=== PATIENT | male | born 1945 | race Caucasian/White ===

== ENCOUNTER 2017-05-28 19:30 | Observation (INO) ==
--- NOTE | 2017-05-28 19:34 | Emergency Department Note ---
Disposition Clinical Impression: Chest pain Qualifiers: Chest pain type: unspecified Qualified Code(s): R07.9 - Chest pain, unspecified Dyspnea Qualifiers: Dyspnea type: unspecified Qualified Code(s): R06.00 - Dyspnea, unspecified Disposition: Admitted As Inpatient Condition: Good [facility]Primary Care Provider[facility] - Forms: ED Satisfaction Letter Time of Disposition: 21:47 SOB HPI - General Chief Complaint: ED Shortness of Breath/Dyspnea Stated Complaint: SHERRY Time Seen by Provider: 05/28/17 19:33 Source: patient Mode of arrival: ambulatory Limitations: no limitations Nursing Notes Reviewed: Yes Vital Signs Reviewed: Yes - History of Present Illness Patient is a 71-year-old male with past medical history COPD, CHF, hypertension , high cholesterol, A. fib, diabetes. He presents today due to shortness of breath and chest pain. He states that he woke up this morning around 3 AM with chest pain that woke him up out of sleep. Chest pain is left-sided, described as a dull ache, no radiation anywhere else, worse with exertion, associated with shortness of breath that is also worsened with exertion. Denies any other nausea, vomiting, sweating, fevers, diarrhea, abdominal pain. Denies any history of MA, any history of cardiac stents. He was seen this morning by previous physician and they wanted to admit the patient for chest pain rule out. However, the patient left against recommendation because he had animals that he needed to feed a home. He returns to the ER today with continued symptoms. He states that his chest pain never went away, his shortness of breath is worsening. - Related Data Home Medications Medication Instructions Recorded Confirmed Amiodarone [Cordarone] 100 mg PO DAILY 10/04/14 05/28/17 Aspirin Enteric Coated [Aspirin EC] 81 mg PO DAILY 10/04/14 05/28/17 Diltiazem CD (24hr) [Cardizem CD] 180 mg PO DAILY 10/04/14 05/28/17 Omeprazole [PriLOSEC] 20 mg PO DAILY 10/04/14 05/28/17 Atorvastatin [Lipitor] 40 mg PO HS 01/09/16 05/28/17 Cholecalciferol (D-3) [Vitamin D] 1,000 unit PO DAILY 10/27/16 05/28/17 Levothyroxine [Synthroid] 150 mcg PO DAILY 10/27/16 05/28/17 Lisinopril [Zestril] 5 mg PO DAILY 10/27/16 05/28/17 Naproxen [Naprosyn] 250 mg PO TID 10/27/16 05/28/17 Tamsulosin [Flomax] 0.4 mg PO HS 10/27/16 05/28/17 metFORMIN [Glucophage] 500 mg PO 0800 10/27/16 05/28/17 Previous Rx's Medication Instructions Recorded HYDROcodone/Acet 5/325 mg [[place] 1 tab PO Q4H PRN #15 tab 10/27/16 5-325 mg] Furosemide [Lasix] 20 mg PO DAILY #14 tablet 01/14/17 Allergies Allergy/AdvReac Type Severity Reaction Status Date / Time duloxetine AdvReac Unknown DIFFICULTY Verified 05/28/17 20:11 SPEAKING gabapentin AdvReac Unknown TREMORS Verified 05/28/17 20:11 Oxycodone AdvReac Unknown Hypotension Verified 05/28/17 20:11 pregabalin AdvReac Unknown TREMORS Verified 05/28/17 20:11 venlafaxine AdvReac Unknown Rash Verified 05/28/17 20:11 All systems ED: reviewed and negative except as stated. Constitutional: Denies: fever Cardiovascular: Reports: chest pain, dyspnea on exertion Respiratory: Reports: dyspnea. Denies: cough Gastrointestinal: Denies: abdominal pain, nausea, vomiting Genitourinary: Denies: urgency, dysuria Integumentary: Denies: rash Neurological: Denies: headache, weakness, numbness, paresthesias Past Medical History - Past Medical History Attestation: Yes The following information was validated with the patient. Source: patient Medical history: Reports: arthritis, atrial fibrillation, diabetes, GERD, hyperlipidemia, hypertension Surgical history: Reports: cholecystectomy, herniorrhaphy, orthopedic, other, sinus surgery Psychiatric history: Reports: no psych history - Social History Smoking Status: Former smoker Smokeless Tobacco Status: No Alcohol use: Reports: none Drug use: Reports: none Physical Exam - General Limitations: no limitations General appearance: alert, in no apparent distress - Head Head exam: atraumatic, normocephalic, normal inspection - Eye Eye exam: Present: normal appearance, PERRL, EOMI - ENT ENT exam: normal exam, normal oropharynx, mucous membranes moist - Neck Neck exam: Present: normal inspection, full ROM, trachea midline - Chest Chest inspection: Present: normal inspection, symmetric chest wall rise - Respiratory Respiratory exam: Present: normal lung sounds bilaterally - Cardiovascular Cardiovascular exam: Present: regular rate, normal rhythm, normal heart sounds - Abdominal Exam Abdominal exam: Present: soft, Non-Tender. Absent: tenderness, distention, guarding, rebound, rigidity - Extremities Exam Extremities exam: Present: normal inspection, full ROM. Absent: tenderness, pedal edema - Neurological Exam Neurological exam: Present: alert, oriented X3 - Psychiatric Psychiatric exam: Present: normal affect, normal mood - Skin Skin exam: Present: warm, dry, intact, normal color Course Course Narrative: Vitals within normal limits. Physical exam shows patient with mildly dyspneic. Otherwise the lungs were clear, patient in a fib (hx of a fib and on coumadin ) abdomen soft and nontender. Patient was a already offered admission this morning. Patient returns with continued chest pain and shortness of breath. Patient had full workup done this morning including basic labs, negative troponin, negative d-dimer. Chest x-ray showed no infiltrates and only showed pulmonary vascular congestion. Will repeat troponin; repeat EKG here shows no acute ST elevation or depression. After trop results, will admit the patient for chest pain workup. Patient has not had heart cath or stress test in past. 21:46 troponin negative. Hospitalist has accepted the patient for chest pain rule out and trending troponins. Vital Signs Temperature 98.1 F 05/28/17 19:36 Pulse Rate 88 05/28/17 19:36 Respiratory Rate 28 05/28/17 19:36 Blood Pressure 114/86 05/28/17 19:36 O2 Sat by Pulse Oximetry 96 05/28/17 19:36 Temperature 98.1 F 05/28/17 19:36 Pulse Rate 99 05/28/17 21:13 Respiratory Rate 12 05/28/17 21:13 Blood Pressure 110/78 05/28/17 21:13 O2 Sat by Pulse Oximetry 95 05/28/17 21:13 Oxygen Delivery Oxygen Delivery Room Air Shortness of Breath/Dyspnea - MDM Narrative Medical decision making narrative: Vitals within normal limits. Physical exam shows patient with mildly dyspneic. Otherwise the lungs were clear, patient in a fib (hx of a fib and on coumadin ) abdomen soft and nontender. Patient was a already offered admission this morning. Patient returns with continued chest pain and shortness of breath. Patient had full workup done this morning including basic labs, negative troponin, negative d-dimer. Chest x-ray showed no infiltrates and only showed pulmonary vascular congestion. Will repeat troponin; repeat EKG here shows no acute ST elevation or depression. After trop results, will admit the patient for chest pain workup. Patient has not had heart cath or stress test in past. 21:46 troponin negative. Hospitalist has accepted the patient for chest pain rule out and trending troponins. - Medical Records Medical records reviewed: Yes I reviewed the patient's medical records. - Lab Data Lab results reviewed: Yes I reviewed the patient's lab results. Lab Results 05/28/17 Range/Units 19:42 Troponin I < 0.03 (< 0.04) ng/mL - Radiology Data Radiology results reviewed: Yes I reviewed the patient's radiology results. - EKG Data EKG attestation: Yes I reviewed and interpreted this EKG. EKG results narrative: 05/28/2017 at 19:40. A. fib. Rate 96. QRS 134. QTC 451. Left axis deviation. No acute ST elevation or depression. No acute changes from previous EKG on 01/14/2017 S.Sonia - Liam Situation: Demographics, MOA Background: Presenting Complaint, Relevant PMH, Meds, & Allergies Assessment: Vital Signs, Course and respsone to treatment, Exam Concerns, Patient/Family Expectation, Pertinant Lab Results Recommendation: Barrier(s) to disposition, Recommendation based on pending studies, treatments, or consults S.Sonia Report Given to: Dr. Luis Wheeler Repor Time: 21:47
--- NOTE | 2017-05-28 20:22 | Emergency Department Note ---
Disposition Clinical Impression: Chest pain Qualifiers: Chest pain type: unspecified Qualified Code(s): R07.9 - Chest pain, unspecified Dyspnea Qualifiers: Dyspnea type: unspecified Qualified Code(s): R06.00 - Dyspnea, unspecified Disposition: Admitted As Inpatient Condition: Good [facility]errals: [facility] [Primary Care Provider] - Forms: ED Satisfaction Letter General Adult HPI - General Chief complaint: ED Shortness of Breath/Dyspnea Stated complaint: SHERRY Time Seen by Provider: 05/28/17 19:33 Source: patient Mode of arrival: ambulatory Limitations: no limitations - History of Present Illness Pain Scale: 8 - Related Data Home Medications Medication Instructions Recorded Confirmed Amiodarone [Cordarone] 100 mg PO DAILY 10/04/14 05/28/17 Aspirin Enteric Coated [Aspirin EC] 81 mg PO DAILY 10/04/14 05/28/17 Diltiazem CD (24hr) [Cardizem CD] 180 mg PO DAILY 10/04/14 05/28/17 Omeprazole [PriLOSEC] 20 mg PO DAILY 10/04/14 05/28/17 Atorvastatin [Lipitor] 40 mg PO HS 01/09/16 05/28/17 Cholecalciferol (D-3) [Vitamin D] 1,000 unit PO DAILY 10/27/16 05/28/17 Levothyroxine [Synthroid] 150 mcg PO DAILY 10/27/16 05/28/17 Lisinopril [Zestril] 5 mg PO DAILY 10/27/16 05/28/17 Naproxen [Naprosyn] 250 mg PO TID 10/27/16 05/28/17 Tamsulosin [Flomax] 0.4 mg PO HS 10/27/16 05/28/17 metFORMIN [Glucophage] 500 mg PO 0800 10/27/16 05/28/17 Previous Rx's Medication Instructions Recorded HYDROcodone/Acet 5/325 mg [[place] 1 tab PO Q4H PRN #15 tab 10/27/16 5-325 mg] Furosemide [Lasix] 20 mg PO DAILY #14 tablet 01/14/17 Allergies Allergy/AdvReac Type Severity Reaction Status Date / Time duloxetine AdvReac Unknown DIFFICULTY Verified 05/28/17 20:11 SPEAKING gabapentin AdvReac Unknown TREMORS Verified 05/28/17 20:11 Oxycodone AdvReac Unknown Hypotension Verified 05/28/17 20:11 pregabalin AdvReac Unknown TREMORS Verified 05/28/17 20:11 venlafaxine AdvReac Unknown Rash Verified 05/28/17 20:11 Constitutional: Denies: fever Cardiovascular: Reports: chest pain, dyspnea on exertion Respiratory: Reports: dyspnea. Denies: cough Gastrointestinal: Denies: abdominal pain, nausea, vomiting Genitourinary: Denies: urgency, dysuria Integumentary: Denies: rash Neurological: Denies: headache, weakness, numbness, paresthesias Past Medical History - Past Medical History Medical history: Reports: arthritis, atrial fibrillation, diabetes, GERD, hyperlipidemia, hypertension Surgical history: Reports: cholecystectomy, herniorrhaphy, orthopedic, other, sinus surgery Psychiatric history: Reports: no psych history - Social History Smoking Status: Former smoker Smokeless Tobacco Status: No Alcohol use: Reports: none Drug use: Reports: none Physical Exam - General Limitations: no limitations General appearance: alert, in no apparent distress Course Vital Signs Temperature 98.1 F 05/28/17 19:36 Pulse Rate 88 05/28/17 19:36 Respiratory Rate 28 05/28/17 19:36 Blood Pressure 114/86 05/28/17 19:36 O2 Sat by Pulse Oximetry 96 05/28/17 19:36 Temperature 98.1 F 05/28/17 19:36 Pulse Rate 75 05/28/17 22:10 Respiratory Rate 26 05/28/17 22:10 Blood Pressure 127/80 05/28/17 22:10 O2 Sat by Pulse Oximetry 100 05/28/17 22:10 Oxygen Delivery Oxygen Delivery Room Air Medical Decision Making - Lab Data Lab Results 05/28/17 Range/Units 19:42 Troponin I < 0.03 (< 0.04) ng/mL Attestation Statement - Attestation Attestation: I examined this patient and my medical decision-making was reviewed with the Resident Physician. I agree with the documented findings, disposition and treatment plan as described except to the extent set forth below. Patient presents to the emergency department with a chief complaint of chest pain or difficulty in breathing. The patient was seen earlier today for the same and went home to feed his animals. He is back setting his chest pain is unchanged and is still short of breath. His workup this morning showed some CHF. On examination he is in no acute distress. Lungs are diminished in bases. Plan. Repeat troponin and EKG. Admit.
--- NOTE | 2017-05-28 22:21 | Internal Med History&Physical ---
Date of Encounter: 05/28/17 Time of Encounter: 22:21 Assessment and Plan (1) Unstable angina Current visit: Yes Status: Acute The patient is admitted for further evaluation of orthopnea. Chest x-ray with cardiomegaly and mild pulmonary vascular congestion. The patient appears peripherally volume overloaded with 2+ lower extremity edema. Plan is to obtain echocardiogram for ejection fraction evaluation given his orthopnea. Begin IV diuresis for vascular congestion and peripheral edema. Atrial fibrillation is rate controlled, therapeutic INR on Coumadin. Discontinue cardizem, start lopressor 50mg BID Continue telemetry. Nuclear stress test Continuous pulse oximetry. (2) Diabetes Current visit: Yes Status: Chronic Low-dose insulin sliding scale coverage. 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 Continuous telemetry Echocardiogram ordered. Qualifiers: Atrial fibrillation type: unspecified Qualified Code(s): I48.91 - Unspecified atrial fibrillation (4) Hypertension Current visit: Yes Status: Chronic Discontinue cardizem Start lopressor 50mg BID Hold lisinopril Qualifiers: Hypertension type: essential hypertension Qualified Code(s): I10 - Essential (primary) hypertension (5) Hyperlipidemia Current visit: Yes Status: Chronic continue statin Qualifiers: Hyperlipidemia type: unspecified Qualified Code(s): E78.5 - Hyperlipidemia , unspecified Internal Medicine - H&P: HPI Chief complaint: Shortness of breath Admitted From: Home Plans for Post Hospital Care: Home History of present illness: Mr. Prieto is a 71 year old male with a past medical history of atrial fibrillation rate controlled on Coumadin, diabetes, hypertension, GERD, arthritis who initially presented to the emergency department on 05/28/17 with a chief complaint of shortness of breath. During his initial evaluation he was offered admission but declined and went home because he did not eat his pets. He reports his symptoms persisted throughout the day so he elected to come back for evaluation. He reports that since yesterday he has had shortness of breath when laying flat. He denies a prior history of this in the past. He states over the last 2 weeks he has started doing yoga at the [facility]. He reports that once he had to place a pillow wedge underneath him to sleep. He states that he feels better whenever he is sitting up or standing. He denies any dyspnea with exertion. Reports he is able to do his usual daily activities without any distress. He denies any chest pain during this episode. He does report some soreness to his left infraclavicular area. States that on Wednesday he was moving something and started having pain the next day. He denies any past medical history of [place], pulmonary embolism, DVT, stroke. He reports he did have a left heart catheterization roughly 10 years ago without intervention. He reports compliance with his medications. He denies any recent illnesses, fevers, chills, nausea, vomiting, diarrhea. Past Med Surg Social Fam HX - Past Medical History Attestation: Yes The following information was validated with the patient. Source: patient Medical history: arthritis, atrial fibrillation, diabetes, GERD, hyperlipidemia , hypertension Psychiatric history: no psych history - Past Surgical History Surgical History: cholecystectomy, herniorrhaphy, orthopedic, other, sinus surgery - Social History Smoking Status: Former smoker Smokeless Tobacco Status: No Alcohol use: none Drug use: none - Family History Mother Living Status: Hx Family Cancer: Yes Internal Medicine - H&P: Meds Amiodarone [Cordarone] 100 mg PO DAILY 10/04/14 [History] Aspirin Enteric Coated [Aspirin EC] 81 mg PO DAILY 10/04/14 [History] Diltiazem CD (24hr) [Cardizem CD] 180 mg PO DAILY 10/04/14 [History] Omeprazole [PriLOSEC] 20 mg PO DAILY 10/04/14 [History] Atorvastatin [Lipitor] 40 mg PO HS 01/09/16 [History] Cholecalciferol (D-3) [Vitamin D] 1,000 unit PO DAILY 10/27/16 [History] HYDROcodone/Acet 5/325 mg [[place] 5-325 mg] 1 tab PO Q4H PRN #15 tab 10/27/16 [Rx ] Levothyroxine [Synthroid] 150 mcg PO DAILY 10/27/16 [History] Lisinopril [Zestril] 5 mg PO DAILY 10/27/16 [History] Naproxen [Naprosyn] 250 mg PO TID 10/27/16 [History] Tamsulosin [Flomax] 0.4 mg PO HS 10/27/16 [History] metFORMIN [Glucophage] 500 mg PO 0800 10/27/16 [History] Furosemide [Lasix] 20 mg PO DAILY #14 tablet 01/14/17 [Rx] 3 Allergy/AdvReac Type Severity Reaction Status Date / Time duloxetine AdvReac Unknown DIFFICULTY Verified 05/28/17 20:11 SPEAKING gabapentin AdvReac Unknown TREMORS Verified 05/28/17 20:11 Oxycodone AdvReac Unknown Hypotension Verified 05/28/17 20:11 pregabalin AdvReac Unknown TREMORS Verified 05/28/17 20:11 venlafaxine AdvReac Unknown Rash Verified 05/28/17 20:11 All Systems PM: A 10-system review of systems was performed and is negative for pertinent findings except as documented above in the HPI. - Constitutional Constitutional: as per HPI, no fever(s), no weakness - EENT Eyes: as per HPI Ears: as per HPI Nose, mouth and throat: as per HPI - Breasts Breasts: as per HPI - Cardiovascular Cardiovascular ROS IM: as per HPI, dyspnea, orthopnea, no chest pain, no diaphoresis, no dyspnea on exertion - Respiratory Respiratory: as per HPI, dyspnea, no cough, no dyspnea on exertion - Gastrointestinal Gastrointestinal: as per HPI, no nausea, no vomiting - Genitourinary Genitourinary ROS male: as per HPI - Musculoskeletal Musculoskeletal ROS IM: as per HPI - Integumentary Integumentary IM: as per HPI - Neurological Neurological ROS: as per HPI - Psychiatric Psychiatric: as per HPI - Endocrine Endocrine IM: as per HPI - Hematologic/Lymphatic Hematologic/Lymphatic: as per HPI - Allergic/Immunologic Allergic/Immunologic: as per HPI - Constitutional Vitals: Temp Pulse Resp BP Pulse Ox 98.1 F 75 26 127/80 100 05/28/17 19:36 05/28/17 22:10 05/28/17 22:10 05/28/17 22:10 05/28/17 22:10 General appearance: Present: A&O X 3, pleasant, no acute distress - Head Head exam: Present: atraumatic, normal inspection, normocephalic - Eye Eye exam: Present: normal appearance - ENT ENT exam: Present: mucous membranes moist - Neck Neck exam general surgery: Present: full ROM - Respiratory Respiratory exam: Present: CTAB. Absent: prolonged expiratory phase, respiratory distress, wheezes, tachypnea - Cardiovascular Cardiovascular exam: Present: irregular rhythm, +S1, +S2. Absent: diastolic murmur, systolic murmur - GI/Abdominal GI/Abdominal exam: Present: soft. Absent: distended, guarding, tenderness - Extremities Exam Extremities exam: Present: full ROM, pedal edema (2+ bilateral lower extremities ). Absent: calf tenderness, cyanotic - Neurological Exam Neurological exam: Present: alert, no focal deficits - Skin Skin exam: Present: intact, warm Internal Med - H&P Results - Labs Labs: Cardiac Enzymes 05/28/17 Range/Units 19:42 Troponin I < 0.03 (< 0.04) ng/mL - EKG Data -: EKG Interpreted by Myself (EKG with atrial fibrillation with rate 96. LAD IVCD QRS 134, No ST-T baker)
[2017-05-28] MEDS ORDERED: Acetaminophen 325 MG TABLET PO PRN (23:30)
[2017-05-28] MEDS ORDERED: Naloxone 0.4 MG/ML INJ IVP PRN (23:30)
[2017-05-28] MEDS ORDERED: Ibuprofen 400 MG TABLET PO PRN (23:30)
[2017-05-28] MEDS ORDERED: Nitroglycerin 0.4 MG TAB.SUBL SL PRN (23:32)
[2017-05-28] MEDS ORDERED: Dextrose Gel 15 GM/37.5 ML TUBE PO PRN ×2 (23:35)
[2017-05-28] MEDS ORDERED: D5% in Water 1,000 ML IVC PRN (23:35)
[2017-05-28] MEDS ORDERED: *HR* Dextrose 50 % in Water (Syg) 50 ML SYRINGE IVP PRN (23:35)
[2017-05-28] MEDS: Insulin LISPRO 300 UNITS/3 ML VIAL SQ SCH (23:57)
[2017-05-29 03:27] LABS: Basophils % 0.5 %; Eosinophils # 0.2 K/mcL (0.0-0.6); Eosinophils % 3.8 %; Hematocrit 39.2 % (37.5-50.1); Hemoglobin 13.4 g/dL (12.9-16.9); Immature Granulocytes % 0.5 % (0-4); Lymphocytes # 1.5 K/mcL (0.6-4.6); Lymphocytes % 24.5 %; Mean Corpuscular HGB Conc 34.2 g/dL (31.6-35.5); Mean Corpuscular Hemoglobin 32.1 pg (28.0-33.3); Mean Corpuscular Volume 93.8 fL (83.0-100.0); Mean Platelet Volume 11.2 fL (9.4-12.4); Monocytes # 0.4 K/mcL (0.0-1.3); Neutrophils # 3.9 K/mcL (1.6-8.9); Platelet Count 116 K/mcL (140-400); Red Blood Count 4.18 M/mcL (4.19-5.50); Red Cell Distribution Width 13.8 % (11.5-14.5); Segmented Neutrophils % 63.7 %
[2017-05-29 03:31] LABS: INR 2.2
[2017-05-29 03:43] LABS: BUN/Creatinine Ratio 17 (6-26); Blood Urea Nitrogen 17 mg/dL (8-23); Carbon Dioxide 21 mEq/L (23-29); Chloride 108 mEq/L (98-107); Chol/HDL Ratio 3.3 (0-4.9); Cholesterol 114 mg/dL (< 200); Glucose 195 mg/dL (70-105); HDL Cholesterol 35 mg/dL (40-59); LDL Cholesterol,Calculated 30 mg/dL (0-99); Osmolality,Calculated 293 (280-300); Potassium 3.7 mEq/L (3.5-5.1); Sodium 138 mEq/L (136-145); Triglycerides 244 mg/dL (< 150); eGFR For African Americans > 60 (> 60); eGFR For Non-African Americans > 60 (> 60)
[2017-05-29] MEDS: Insulin LISPRO 300 UNITS/3 ML VIAL SQ SCH ×2 (05:56→12:07)
[2017-05-29] MEDS ORDERED: Regadenoson 0.4 MG/5 ML SYRINGE IVP ONE (07:28)
[2017-05-29] MEDS ORDERED: Cholecalciferol (D-3) 1,000 UNIT TABLET PO SCH (09:00)
[2017-05-29] MEDS ORDERED: Aspirin 81 MG TAB.CHEW PO SCH (09:00)
[2017-05-29] MEDS ORDERED: *HR* Amiodarone 200 MG TABLET PO SCH (09:00)
[2017-05-29] MEDS ORDERED: Furosemide 40 MG/4 ML VIAL IVP SCH (09:00)
[2017-05-29 11:15] VITALS: BP 112/55
--- NOTE | 2017-06-01 05:26 | Electrocardiograph Report ---
[address] [address] Test Date: 2017-05-28 Pat Name: Vin Prieto Department: 102 Room: 3B Gender: M Vascular Nurse: Lrs : 1945 Requested By: Du Mann Order Number: [id number] Reading MD: George Lozano Measurements Intervals [place] Rate: 96 P: [place]: 0 QRS: -56 QRSD: 134 T: 57 QT: 398 QTc: 451 Interpretive Statements ATRIAL FIBRILLATION INTRAVENTRICULAR CONDUCTION DELAY POOR R WAVE PROGRESSIONO Electronically Signed On 06-01-2017 5:24:24 EDT by George Lozano
--- NOTE | 2017-06-08 18:43 | Event Note ---
Date of Encounter: 06/08/17 Time of Encounter: 15:42 Vin Prieto was admitted due to concerns of ACS. He was seen earlier in the day and elected to go home although he was offered admission. He returned due to worsening symptoms and was agreeable with admission at that time. As per the records it appears that he underwent a stress test however the patient left AGAINST MEDICAL ADVICE prior to his full workup. I did not see the patient during this time and was unaware that he had signed out AMA until he had left the premise.
== END 2017-05-29 13:26 | disposition left against medical advice (07) ==
LOC: EMEROO 19:30 → 3BNU 19:30
PROVIDERS: ADMIT Internal Medicine; ATTEND Internal Medicine

== ENCOUNTER 2017-05-29 23:56 | Observation (INO) ==
--- NOTE | 2017-05-30 00:59 | Emergency Department Note ---
Disposition Clinical Impression: Dyspnea Qualifiers: Dyspnea type: orthopnea Qualified Code(s): R06.01 - Orthopnea Atrial fibrillation Qualifiers: Atrial fibrillation type: unspecified Qualified Code(s): I48.91 - Unspecified atrial fibrillation Congestive heart failure Qualifiers: Heart failure type: combined systolic and diastolic Heart failure chronicity: acute on chronic Qualified Code(s): I50.43 - Acute on chronic combined systolic (congestive) and diastolic (congestive) heart failure Disposition: Admitted As Inpatient Condition: Good Time of Disposition: 01:06 SOB HPI - General Chief Complaint: ED Shortness of Breath/Dyspnea Stated Complaint: shameka legs retaining fluid Time Seen by Provider: 05/30/17 00:22 Source: patient Limitations: no limitations Nursing Notes Reviewed: Yes Vital Signs Reviewed: Yes - History of Present Illness Pt Subjective Complaint: shortness of breath Onset (ago): day(s) Severity: none Consistency/Duration: constant Improves with: nothing Worsens with: lying flat Known history of: COPD, congestive heart failure, diabetes Associated symptoms: Reports: orthopnea. Denies: chest pain - Related Data Home Medications Medication Instructions Recorded Confirmed Amiodarone [Cordarone] 100 mg PO DAILY 10/04/14 05/30/17 Aspirin Enteric Coated [Aspirin EC] 81 mg PO DAILY 10/04/14 05/30/17 Diltiazem CD (24hr) [Cardizem CD] 180 mg PO DAILY 10/04/14 05/30/17 Omeprazole [PriLOSEC] 20 mg PO DAILY 10/04/14 05/30/17 Atorvastatin [Lipitor] 40 mg PO HS 01/09/16 05/30/17 Cholecalciferol (D-3) [Vitamin D] 1,000 unit PO DAILY 10/27/16 05/30/17 Levothyroxine [Synthroid] 150 mcg PO DAILY 10/27/16 05/30/17 Lisinopril [Zestril] 5 mg PO DAILY 10/27/16 05/30/17 Naproxen [Naprosyn] 250 mg PO TID 10/27/16 05/30/17 Tamsulosin [Flomax] 0.4 mg PO HS 10/27/16 05/30/17 metFORMIN [Glucophage] 500 mg PO 0800 10/27/16 05/30/17 Previous Rx's Medication Instructions Recorded Furosemide [Lasix] 20 mg PO DAILY #14 tablet 01/14/17 Allergies Allergy/AdvReac Type Severity Reaction Status Date / Time duloxetine AdvReac Unknown DIFFICULTY Verified 05/28/17 20:11 SPEAKING gabapentin AdvReac Unknown TREMORS Verified 05/28/17 20:11 Oxycodone AdvReac Unknown Hypotension Verified 05/28/17 20:11 pregabalin AdvReac Unknown TREMORS Verified 05/28/17 20:11 venlafaxine AdvReac Unknown Rash Verified 05/28/17 20:11 All systems ED: reviewed and negative except as stated. Review of Systems: As Per HPI Constitutional: Denies: fever, chills, weakness Eyes: Denies: vision change ENT ED: Denies: throat pain Cardiovascular: Reports: as per HPI Respiratory: Reports: as per HPI. Denies: cough Gastrointestinal: Denies: abdominal pain, nausea, vomiting Genitourinary: Denies: dysuria Musculoskeletal: Denies: back pain Integumentary: Denies: rash Neurological: Denies: headache, weakness, numbness Endocrine: Denies: fatigue Hematological/Lymphatic: Denies: easy bleeding Allergic/Immunologic: Denies: facial swelling Past Medical History - Past Medical History Medical history: Reports: arthritis, atrial fibrillation, diabetes, GERD, hyperlipidemia, hypertension Surgical history: Reports: cholecystectomy, herniorrhaphy, orthopedic, other, sinus surgery Psychiatric history: Reports: no psych history - Social History Smoking Status: Former smoker Smokeless Tobacco Status: No Alcohol use: Reports: none Drug use: Reports: none Physical Exam - General Limitations: no limitations General appearance: alert, in no apparent distress - Head Head exam: normocephalic - Eye Eye exam: Present: EOMI. Absent: conjunctival injection - ENT ENT exam: mucous membranes moist - Neck Neck exam: Present: full ROM - Chest Chest inspection: Present: normal inspection, symmetric chest wall rise - Respiratory Respiratory exam: Present: normal lung sounds bilaterally. Absent: respiratory distress, wheezes, stridor - Cardiovascular Cardiovascular exam: Present: regular rate - Abdominal Exam Abdominal exam: Present: Non-Tender - Extremities Exam Extremities exam: Present: full ROM - Expanded Lower Extremity Exam Hip/Pelvis exam: Present: full ROM Upper leg exam: Present: full ROM Knee exam: Present: full ROM Lower leg exam: Present: swelling Ankle exam: Present: swelling Foot/toe exam: Present: swelling Neurovascular/Tendon exam: Present: normal capillary refill. Absent: pulse deficit Gait: observed and normal - Back Exam Back exam: Present: full ROM - Neurological Exam Neurological exam: Present: alert - Psychiatric Psychiatric exam: Present: normal affect, normal mood - Skin Skin exam: Present: warm, dry, intact, normal color. Absent: rash, cyanosis, diaphoresis Course Course Narrative: 71-year-old male diabetic presents to emergency department with ongoing dyspnea , and bilateral lower leg edema. He mentions he was seen in this department yesterday, and was admitted. I have reviewed EMR, apparently patient had presented to the ED with worsening difficulty breathing, chest pain, and lower leg edema. He was admitted for further evaluation, however patient had left AGAINST MEDICAL ADVICE mentioning he needed to take care of his animals. He now returns with dyspnea and BLE edema, and states he has no worsening of his symptoms. Patient was being evaluated for unstable angina. He also has a known history of diabetes, atrial fibrillation, hypertension, and hyperlipidemia. His vital signs are stable. He denies any chest pain at this time. Repeat EKG upon his arrival tonight shows atrial fibrillation, with a ventricular rate of 85. No evidence of any ischemic changes. Plan will be for admission. I did discuss patient with Dr. Vazquez who agreed to have face time with patient, and agreed no need for any additional testing in the ED at this point. I have asked the hospitalist to be paged for admission. - Reevaluation(s) Reevaluation #1: Pt disussed with and accepted by hospitalist Dr. Sharpe Time: 01:05 Vital Signs Temperature 97.5 F L 05/29/17 23:59 Pulse Rate 111 05/29/17 23:59 Respiratory Rate 18 05/29/17 23:59 Blood Pressure 163/120 05/29/17 23:59 O2 Sat by Pulse Oximetry 95 05/29/17 23:59 Temperature 97.5 F L 05/29/17 23:59 Pulse Rate 92 05/30/17 01:52 Respiratory Rate 19 05/30/17 01:52 Blood Pressure 146/97 05/30/17 01:52 O2 Sat by Pulse Oximetry 92 05/30/17 01:52 Oxygen Delivery Oxygen Delivery Room Air Shortness of Breath/Dyspnea - Medical Records Medical records reviewed: Yes I reviewed the patient's medical records. - EKG Data EKG attestation: Yes I reviewed and interpreted this EKG. EKG results narrative: A-fib, ventricular rate 85, QRS duration 135, QT / QTC 383 /425, no evidence of ischemia.
--- NOTE | 2017-05-30 01:09 | Emergency Department Note ---
Disposition Clinical Impression: Dyspnea Qualifiers: Dyspnea type: orthopnea Qualified Code(s): R06.01 - Orthopnea Atrial fibrillation Qualifiers: Atrial fibrillation type: unspecified Qualified Code(s): I48.91 - Unspecified atrial fibrillation Congestive heart failure Qualifiers: Heart failure type: combined systolic and diastolic Heart failure chronicity: acute on chronic Qualified Code(s): I50.43 - Acute on chronic combined systolic (congestive) and diastolic (congestive) heart failure Disposition: Admitted As Inpatient Condition: Good [facility]errals: [facility] [Primary Care Provider[facility] - Forms: ED Satisfaction Letter General Adult HPI - General Chief complaint: ED Shortness of Breath/Dyspnea Stated complaint: shameka legs retaining fluid Time Seen by Provider: 05/30/17 00:22 Source: patient Limitations: no limitations - History of Present Illness Pain Scale: 7 - Related Data Home Medications Medication Instructions Recorded Confirmed Amiodarone [Cordarone] 100 mg PO DAILY 10/04/14 05/28/17 Aspirin Enteric Coated [Aspirin EC] 81 mg PO DAILY 10/04/14 05/28/17 Diltiazem CD (24hr) [Cardizem CD] 180 mg PO DAILY 10/04/14 05/28/17 Omeprazole [PriLOSEC] 20 mg PO DAILY 10/04/14 05/28/17 Atorvastatin [Lipitor] 40 mg PO HS 01/09/16 05/28/17 Cholecalciferol (D-3) [Vitamin D] 1,000 unit PO DAILY 10/27/16 05/28/17 Levothyroxine [Synthroid] 150 mcg PO DAILY 10/27/16 05/28/17 Lisinopril [Zestril] 5 mg PO DAILY 10/27/16 05/28/17 Naproxen [Naprosyn] 250 mg PO TID 10/27/16 05/28/17 Tamsulosin [Flomax] 0.4 mg PO HS 10/27/16 05/28/17 metFORMIN [Glucophage] 500 mg PO 0800 10/27/16 05/28/17 Previous Rx's Medication Instructions Recorded HYDROcodone/Acet 5/325 mg [[place] 1 tab PO Q4H PRN #15 tab 10/27/16 5-325 mg] Furosemide [Lasix] 20 mg PO DAILY #14 tablet 01/14/17 Allergies Allergy/AdvReac Type Severity Reaction Status Date / Time duloxetine AdvReac Unknown DIFFICULTY Verified 05/28/17 20:11 SPEAKING gabapentin AdvReac Unknown TREMORS Verified 05/28/17 20:11 Oxycodone AdvReac Unknown Hypotension Verified 05/28/17 20:11 pregabalin AdvReac Unknown TREMORS Verified 05/28/17 20:11 venlafaxine AdvReac Unknown Rash Verified 05/28/17 20:11 Constitutional: Denies: fever, chills, weakness Eyes: Denies: vision change ENT ED: Denies: throat pain Cardiovascular: Reports: as per HPI Respiratory: Reports: as per HPI. Denies: cough Gastrointestinal: Denies: abdominal pain, nausea, vomiting Genitourinary: Denies: dysuria Musculoskeletal: Denies: back pain Integumentary: Denies: rash Neurological: Denies: headache, weakness, numbness Endocrine: Denies: fatigue Hematological/Lymphatic: Denies: easy bleeding Allergic/Immunologic: Denies: facial swelling Past Medical History - Past Medical History Medical history: Reports: arthritis, atrial fibrillation, diabetes, GERD, hyperlipidemia, hypertension Surgical history: Reports: cholecystectomy, herniorrhaphy, orthopedic, other, sinus surgery Psychiatric history: Reports: no psych history - Social History Smoking Status: Former smoker Smokeless Tobacco Status: No Alcohol use: Reports: none Drug use: Reports: none Physical Exam - General Limitations: no limitations General appearance: alert Course - Reevaluation(s) Reevaluation #1: Attestation note I examined this patient and my medical decision-making was reviewed with the emergency medicine resident. I agree with the documented findings, disposition and treatment plan as described except to the extent set forth below. Patient seen with physician benefits assistant Adrian Espinal, Please see a copy of his note for details of the H&P, ED evaluation, management and disposition. I have independently evaluated the patient and confirmed appropriate portions of the history and physical exam. Briefly: 71-year-old male being admitted for CHF exacerbation signed himself out AMA this morning to take care of his farm animals. Has returned with shortness of breath and swelling in his extremities. Patient will be readmitted. Admission disposition pending Time: 01:07 Vital Signs Temperature 97.5 F L 05/29/17 23:59 Pulse Rate 111 05/29/17 23:59 Respiratory Rate 18 05/29/17 23:59 Blood Pressure 163/120 05/29/17 23:59 O2 Sat by Pulse Oximetry 95 05/29/17 23:59 Temperature 97.5 F L 05/29/17 23:59 Pulse Rate 111 05/29/17 23:59 Respiratory Rate 18 05/29/17 23:59 Blood Pressure 163/120 05/29/17 23:59 O2 Sat by Pulse Oximetry 95 05/29/17 23:59 Oxygen Delivery Oxygen Delivery Room Air
[2017-05-30] MEDS ORDERED: Naloxone 0.4 MG/ML INJ IVP PRN (02:32)
--- NOTE | 2017-05-30 02:40 | Internal Med History&Physical ---
Date of Encounter: 05/30/17 Time of Encounter: 02:38 Internal Medicine - H&P: HPI Chief complaint: I cant breathe Admitted From: Home Plans for Post Hospital Care: Home History of present illness: Mr. Prieto is a 71 year old male with a past medical history of atrial fibrillation rate controlled on Coumadin, diabetes, hypertension, GERD, arthritis who initially presented to the emergency department on 05/28/17 with a chief complaint of shortness of breath. During his initial evaluation he was offered admission but declined and went home because he did not eat his pets. He reports his symptoms persisted throughout the day 05/28 so he elected to come back for evaluation. He was placed on observation for ACS rule out and CHF exacerbation He completed the first phase of stress test and again left AMA to "feed his animals" He represents to the ER stating " I was told to return at 6p.m", "my breathing is worse and my left leg is mroe swollen than the right" He endorses orthopnea, PND, He states that he feels better whenever he is sitting up or standing. He denies any dyspnea with exertion. Reports he is able to do his usual daily activities without any distress. He denies any chest pain during this episode. He does report some soreness to his left infraclavicular area. He denies any past medical history of VT, pulmonary embolism, DVT, stroke. He reports he did have a left heart catheterization roughly 10 years ago without intervention. He reports compliance with his medications. He denies any recent illnesses, fevers, chills, nausea, vomiting, diarrhea. no other complains Past Med Surg Social Fam HX - Past Medical History Medical history: arthritis, atrial fibrillation, diabetes, GERD, hyperlipidemia , hypertension Psychiatric history: no psych history - Past Surgical History Surgical History: cholecystectomy, herniorrhaphy, orthopedic, other, sinus surgery - Social History Smoking Status: Former smoker Smokeless Tobacco Status: No Alcohol use: none Drug use: none - Family History Mother Living Status: Hx Family Cancer: Yes Internal Medicine - H&P: Meds Amiodarone [Cordarone] 100 mg PO DAILY 10/04/14 [History] Aspirin Enteric Coated [Aspirin EC] 81 mg PO DAILY 10/04/14 [History] Diltiazem CD (24hr) [Cardizem CD] 180 mg PO DAILY 10/04/14 [History] Omeprazole [PriLOSEC] 20 mg PO DAILY 10/04/14 [History] Atorvastatin [Lipitor] 40 mg PO HS 01/09/16 [History] Cholecalciferol (D-3) [Vitamin D] 1,000 unit PO DAILY 10/27/16 [History] Levothyroxine [Synthroid] 150 mcg PO DAILY 10/27/16 [History] Lisinopril [Zestril] 5 mg PO DAILY 10/27/16 [History] Naproxen [Naprosyn] 250 mg PO TID 10/27/16 [History] Tamsulosin [Flomax] 0.4 mg PO HS 10/27/16 [History] metFORMIN [Glucophage] 500 mg PO 0800 10/27/16 [History] Furosemide [Lasix] 20 mg PO DAILY #14 tablet 01/14/17 [Rx] 3 Allergy/AdvReac Type Severity Reaction Status Date / Time duloxetine AdvReac Unknown DIFFICULTY Verified 05/28/17 20:11 SPEAKING gabapentin AdvReac Unknown TREMORS Verified 05/28/17 20:11 Oxycodone AdvReac Unknown Hypotension Verified 05/28/17 20:11 pregabalin AdvReac Unknown TREMORS Verified 05/28/17 20:11 venlafaxine AdvReac Unknown Rash Verified 05/28/17 20:11 All Systems PM: A 10-system review of systems was performed and is negative for pertinent findings except as documented above in the HPI. - Constitutional Constitutional: as per HPI - EENT Eyes: as per HPI Ears: as per HPI Nose, mouth and throat: as per HPI - Breasts Breasts: as per HPI - Cardiovascular Cardiovascular ROS IM: as per HPI - Respiratory Respiratory: as per HPI - Gastrointestinal Gastrointestinal: as per HPI - Musculoskeletal Musculoskeletal ROS IM: as per HPI - Integumentary Integumentary IM: as per HPI - Neurological Neurological ROS: as per HPI - Hematologic/Lymphatic Hematologic/Lymphatic: as per HPI - Constitutional Vitals: Temp Pulse Resp BP Pulse Ox 97.5 F L 92 19 146/97 92 05/29/17 23:59 05/30/17 01:52 05/30/17 01:52 05/30/17 01:52 05/30/17 01:52 General appearance: Present: A&O X 3, morbidly obese, no acute distress. Absent : pleasant - Head Head exam: Present: atraumatic, normocephalic - Eye Eye exam: Present: PERRL, conjuntiva pink, sclera anicteric Pupils: Present: PERRL - Neck Neck exam general surgery: Present: supple, trachea midline. Absent: lymphadenopathy - Respiratory Respiratory exam: Present: CTAB. Absent: accessory muscle use, rales, rhonchi, wheezes - Cardiovascular Cardiovascular exam: Present: irregular rhythm, +S1, +S2. Absent: diastolic murmur, gallop, rubs, systolic murmur - GI/Abdominal GI/Abdominal exam: Present: normal bowel sounds, soft, no peritoneal signs. Absent: distended, tenderness - Extremities Exam Extremities exam: Present: pedal edema - Neurological Exam Neurological exam: Present: alert, CN II-XII intact, oriented X3, no focal deficits. Absent: pronater drift, facial droop, speech deficit - Skin Skin exam: Present: dry, intact - Assessment and plan (1) Congestive heart failure Current Visit: Yes Status: Acute Assessment and plan: Chest x-ray 05/28 with cardiomegaly and mild pulmonary vascular congestion. The patient appears peripherally volume overloaded with 2+ lower extremity edema. I/Os Daily weight Fluid restriction diet Lasix 40mg IV BID MOnitor pulse ox Qualifiers: Heart failure type: combined systolic and diastolic Heart failure chronicity: acute on chronic Qualified Code(s): I50.43 - Acute on chronic combined systolic (congestive) and diastolic (congestive) heart failure (2) Atrial fibrillation Current Visit: Yes Status: Chronic Assessment and plan: continue home meds, INR therapeutic Qualifiers: Atrial fibrillation type: unspecified Qualified Code(s): I48.91 - Unspecified atrial fibrillation (3) Chest pain Current Visit: Yes Status: Acute Assessment and plan: Has completed first phase of stress josué 05/29 prior to leaving AMA Keep NPO from [place] 05/31 for second phase of stress test INR is therapeutic Troponin is negative Qualifiers: Chest pain type: unspecified Qualified Code(s): R07.9 - Chest pain, unspecified (4) Diabetes Current Visit: Yes Status: Chronic Assessment and plan: Low-dose insulin sliding scale coverage. 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 Diabetes mellitus complication status: without complication Qualified Code(s): E11.9 - Type 2 diabetes mellitus without complications (5) Hyperlipidemia Current Visit: Yes Status: Chronic Assessment and plan: continue home meds lipid panel noted Qualifiers: Hyperlipidemia type: unspecified Qualified Code(s): E78.5 - Hyperlipidemia , unspecified (6) Hypertension Current Visit: Yes Status: Chronic Assessment and plan: controlled, continue home meds Qualifiers: Hypertension type: essential hypertension Qualified Code(s): I10 - Essential (primary) hypertension - Time Spent With Patient Total time spent is greater than 50% in coordination of care (as documented) at patient's floor/unit and/or counseling patient:
[2017-05-30] MEDS ORDERED: *HR* Dextrose 50 % in Water (Syg) 50 ML SYRINGE IVP PRN (02:45)
[2017-05-30] MEDS ORDERED: Dextrose Gel 15 GM/37.5 ML TUBE PO PRN ×2 (02:45)
[2017-05-30] MEDS ORDERED: D5% in Water 1,000 ML IVC PRN (02:45)
[2017-05-30 05:14] LABS: Prothrombin Time 21.8 Seconds (9.4-12.1)
[2017-05-30] MEDS: Insulin LISPRO 300 UNITS/3 ML VIAL SQ SCH ×4 (08:38→20:30)
[2017-05-30] MEDS: Furosemide 40 MG/4 ML VIAL IVP SCH ×2 (08:43→17:01)
[2017-05-30] MEDS: Aspirin Enteric Coated 81 MG Tablet PO SCH (08:44)
[2017-05-30] MEDS: Diltiazem CD (24hr) 180 MG CAPSULE PO SCH (08:44)
[2017-05-30] MEDS: *HR* Amiodarone 200 MG TABLET PO SCH (08:44)
[2017-05-30] MEDS: Cholecalciferol (D-3) 1,000 UNIT TABLET PO SCH (08:45)
--- NOTE | 2017-05-30 12:22 | Event Note ---
Date of Encounter: 05/30/17 Time of Encounter: 12:21 Patient is sitting up on side of bed working on a puzzle book. He states he came back to get step to stress test in the a.m. He states his edema of his lower extremities is worse than normal and he feels a little more short of breath. Told him I will wait for the echocardiogram and duplex Dopplers of his lower extremity reports to be finalized and will discuss with him. Also discussed continuing his Lasix. He is in agreement he has no voiced complaints. He is aware he will be nothing by mouth after midnight.
[2017-05-31 05:59] LABS: Basophils % 0.5 %; Eosinophils # 0.2 K/mcL (0.0-0.6); Eosinophils % 2.5 %; Hematocrit 43.4 % (37.5-50.1); Hemoglobin 14.9 g/dL (12.9-16.9); Immature Granulocytes % 0.5 % (0-4); Lymphocytes # 1.4 K/mcL (0.6-4.6); Lymphocytes % 22.3 %; Mean Corpuscular HGB Conc 34.3 g/dL (31.6-35.5); Mean Corpuscular Hemoglobin 31.8 pg (28.0-33.3); Mean Corpuscular Volume 92.7 fL (83.0-100.0); Monocytes # 0.5 K/mcL (0.0-1.3); Monocytes % 7.9 %; Neutrophils # 4.2 K/mcL (1.6-8.9); Platelet Count 147 K/mcL (140-400); Red Blood Count 4.68 M/mcL (4.19-5.50); Red Cell Distribution Width 13.9 % (11.5-14.5); Segmented Neutrophils % 66.3 %
[2017-05-31 06:19] LABS: BUN/Creatinine Ratio 20 (6-26); Blood Urea Nitrogen 21 mg/dL (8-23); Calcium 9.7 mg/dL (8.6-10.3); Carbon Dioxide 28 mEq/L (23-29); Chloride 103 mEq/L (98-107); Glucose 149 mg/dL (70-105); Osmolality,Calculated 300 (280-300); Sodium 142 mEq/L (136-145); eGFR For African Americans > 60 (> 60); eGFR For Non-African Americans > 60 (> 60)
[2017-05-31] MEDS: Diltiazem CD (24hr) 180 MG CAPSULE PO SCH (07:47)
[2017-05-31] MEDS: Cholecalciferol (D-3) 1,000 UNIT TABLET PO SCH (07:47)
[2017-05-31] MEDS: Aspirin Enteric Coated 81 MG Tablet PO SCH (07:47)
[2017-05-31] MEDS: *HR* Amiodarone 200 MG TABLET PO SCH (07:47)
[2017-05-31] MEDS: Insulin LISPRO 300 UNITS/3 ML VIAL SQ SCH ×4 (07:48→20:36)
[2017-05-31] MEDS: Furosemide 40 MG/4 ML VIAL IVP SCH ×2 (07:49→17:36)
--- NOTE | 2017-05-31 15:54 | Internal Med Progress Note ---
Date of Encounter: 05/31/17 Time of Encounter: 15:52 - Assessment and plan (1) Chest pain Current Visit: Yes Status: Acute Assessment and plan: When patient was admitted we thought he was returning for step 2 of his stress test this morning. After investigation today we found out that his stress test was completed last week but he left AMA before having a recommended cardiac catheterization. Discussed with the patient he is agreeable to stay overnight nothing by mouth after midnight to have a cardiac catheterization in the a.m. Cardiology has been consult and will see the patient. INR is therapeutic Troponin is negative Qualifiers: Chest pain type: unspecified Qualified Code(s): R07.9 - Chest pain, unspecified (2) Diabetes Current Visit: Yes Status: Chronic Assessment and plan: Low-dose insulin sliding scale coverage with accu checks. Qualifiers: Diabetes mellitus type: type 2 Diabetes mellitus advertising vice president insulin use: without advertising vice president use Diabetes mellitus complication status: without complication Qualified Code(s): E11.9 - Type 2 diabetes mellitus without complications (3) Hypertension Current Visit: Yes Status: Chronic Assessment and plan: blood pressure controlled, continue home meds Qualifiers: Hypertension type: essential hypertension Qualified Code(s): I10 - Essential (primary) hypertension (4) Atrial fibrillation Current Visit: Yes Status: Chronic Assessment and plan: continue home meds, INR therapeutic on admission and held for cardiac procedure , check INR in am Qualifiers: Atrial fibrillation type: unspecified Qualified Code(s): I48.91 - Unspecified atrial fibrillation (5) Hyperlipidemia Current Visit: Yes Status: Chronic Assessment and plan: continue lipitor lipid panel noted Qualifiers: Hyperlipidemia type: unspecified Qualified Code(s): E78.5 - Hyperlipidemia , unspecified (6) Congestive heart failure Current Visit: Yes Status: Acute Assessment and plan: Chest x-ray 05/28 with cardiomegaly and mild pulmonary vascular congestion. peripherally volume overloaded with 2+ lower extremity edema. I/Os Daily weight Fluid restriction diet Lasix 40mg IV BID Monitor pulse ox Monitor labs Qualifiers: Heart failure type: combined systolic and diastolic Heart failure chronicity: acute on chronic Qualified Code(s): I50.43 - Acute on chronic combined systolic (congestive) and diastolic (congestive) heart failure (7) DVT prophylaxis Current Visit: Yes Status: Acute Assessment and plan: Patient on Coumadin with INR of 2.0 on admission currently being held for cardiac catheter in a.m. We will repeat INR in a.m. Unable to utilize SCDs secondary to lower extremity swelling (8) Bilateral lower extremity edema Current Visit: Yes Status: Acute Assessment and plan: Venous Doppler studies negative for DVT Patient has venous stations skin changes Elevate when out out of bed - Time Spent With Patient Total time spent is greater than 50% in coordination of care (as documented) at patient's floor/unit and/or counseling patient: - Subjective Interval history: Patient lying in bed watching TV with his legs propped up. He said the swelling is still more than at home. He does have venous stasis changes that he says are normal for him. He has no chest pain or shortness of breath at this time. He is agreeable to stay and have a cardiac catheterization in the a.m. for abnormal stress testing. He has had a cath in the past. He has no questions at this time - Constitutional Vitals: Temp Pulse Resp BP Pulse Ox 97.9 F 84 16 95/64 95 05/31/17 14:54 05/31/17 14:54 05/31/17 14:54 05/31/17 14:54 05/31/17 14:54 General appearance: Present: cooperative, A&O X 3, morbidly obese, pleasant, no acute distress, answers questions appropriately - Head Head exam: Present: atraumatic, normocephalic - Eye Eye exam: Present: PERRL, conjuntiva pink, sclera anicteric Pupils: Present: PERRL - Neck Neck exam general surgery: Present: supple, trachea midline. Absent: lymphadenopathy - Respiratory Respiratory exam: Present: CTAB. Absent: accessory muscle use, rales, rhonchi, wheezes - Cardiovascular Cardiovascular exam: Present: RRR, +S1, +S2. Absent: diastolic murmur, gallop, rubs, systolic murmur - GI/Abdominal GI/Abdominal exam: Present: normal bowel sounds, soft, no peritoneal signs. Absent: distended, tenderness - Extremities Exam Extremities exam: Present: pedal edema, warm, radial pulses palpable and symmetrical. Absent: calf tenderness, cyanotic Additional comments: Edema is firm and slight pitting with venous stations changes bilaterally - Neurological Exam Neurological exam: Present: alert, CN II-XII intact, oriented X3, no focal deficits. Absent: pronater drift, facial droop, speech deficit - Skin Skin exam: Present: dry, intact, normal color, warm Internal Medicine: Result - Labs CBC & Chem 7: 05/31/17 05:06 05/31/17 05:06 Labs: Short CBC 05/31/17 Range/Units 05:06 WBC 6.4 (4.3-11.1) K/mcL Hgb 14.9 D (12.9-16.9) g/dL Hct 43.4 (37.5-50.1) % Plt Count 147 (140-400) K/mcL Neutrophils # 4.2 (1.6-8.9) K/mcL BMP 05/31/17 05:06 Sodium 142 Potassium 4.0 Chloride 103 Carbon Dioxide 28 BUN 21 Creatinine 1.06 Glucose 149 H Calcium 9.7 - ABG Interpretation ABG results: PT/INR, D-dimer PT 21.8 Seconds (9.4-12.1) H 05/30/17 04:38 - Impressions Impressions Echocardiogram 05/30/17 02:37 Impressions: Technically sub-optimal due to body habitus. LVEF 50%. Not all segments were well visualized, but overall LVEF appears low normal. Mild concentric left ventricular hypertrophy. Indeterminate diastolic function. Atypical septal motion consistent with bundle branch block. Right ventricle was not well visualized. Grossly, it is normal in function. No evidence of pulmonary hypertension. No significant valvular dysfunction. Findings: Study Quality * Technically sub-optimal due to body habitus. ECG Findings * Baseline artifact. Appears to be atrial fibrillation, bundle branch block. Left Ventricle * LVEF 50%. Not all segments were well visualized, but overall LVEF appears low normal. * Normal LV chamber size. * Mild concentric left ventricular hypertrophy. * Indeterminate diastolic function. * Atypical septal motion consistent with bundle branch block. Right Ventricle * Right ventricle was not well visualized. Grossly, it is normal in function. Left Atrium * Mildly dilated left atrium. Right Atrium * Mildly dilated right atrium. Aortic Valve * Aortic valve not well visualized. * No aortic regurgitation. * No aortic stenosis. Mitral Valve * Mild mitral annular calcification * No mitral regurgitation. * No mitral stenosis. Tricuspid Valve * Normal tricuspid valve structure and function. * Trace tricuspid regurgitation. * No evidence of pulmonary hypertension. Pulmonic Valve * Pulmonic valve not well visualized. Aorta * Normally sized aortic root. Pericardium * The pericardium appears normal. IVC * The IVC is not well evaluated. Pulmonary Artery * Pulmonary artery not well visualized. Consult Discharge Plan - Plan [facility]errals: [facility] [Primary Care Provider] -
[2017-05-31] MEDS ORDERED: Sennosides 8.6 MG TABLET PO PRN (16:02)
[2017-05-31] MEDS: Gabapentin 100 MG CAPSULE PO SCH ×2 (17:35→19:56)
--- NOTE | 2017-06-01 05:56 | Electrocardiograph Report ---
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
[2017-06-01 06:00] LABS: Basophils % 0.4 %; Eosinophils # 0.2 K/mcL (0.0-0.6); Eosinophils % 2.7 %; Hematocrit 40.9 % (37.5-50.1); Immature Granulocytes % 0.4 % (0-4); Lymphocytes # 1.3 K/mcL (0.6-4.6); Lymphocytes % 23.4 %; Mean Corpuscular HGB Conc 34.2 g/dL (31.6-35.5); Mean Corpuscular Hemoglobin 31.7 pg (28.0-33.3); Mean Corpuscular Volume 92.5 fL (83.0-100.0); Monocytes # 0.6 K/mcL (0.0-1.3); Monocytes % 9.9 %; Neutrophils # 3.6 K/mcL (1.6-8.9); Platelet Count 118 K/mcL (140-400); Red Blood Count 4.42 M/mcL (4.19-5.50); Red Cell Distribution Width 13.5 % (11.5-14.5); Segmented Neutrophils % 63.2 %
[2017-06-01 06:06] LABS: INR 1.6; Prothrombin Time 17.2 Seconds (9.4-12.1)
[2017-06-01 06:24] LABS: BUN/Creatinine Ratio 23 (6-26); Blood Urea Nitrogen 27 mg/dL (8-23); Calcium 9.6 mg/dL (8.6-10.3); Carbon Dioxide 29 mEq/L (23-29); Chloride 104 mEq/L (98-107); Glucose 146 mg/dL (70-105); Osmolality,Calculated 300 (280-300); Potassium 3.9 mEq/L (3.5-5.1); Sodium 141 mEq/L (136-145); eGFR For African Americans > 60 (> 60); eGFR For Non-African Americans > 60 (> 60)
--- NOTE | 2017-06-01 08:36 | Cardiology Consult Note ---
Addendum entered and electronically signed by Dev Nathan CNP 06/01/17 09:22 : [facility]. We will proceed as planned. TTE was completed and showed mow normal LV function. EF 50%. LVH. No significant valvular disease. Original Note: <Dev Nathan - Last Filed: 06/01/17 09:09> Date of Encounter: 06/01/17 Time of Encounter: 08:30 Assessment and Plan (1) Abnormal stress test Current Visit: Yes Status: Acute Abnormal stress test reviewed with patient. Stress test 05/29/17:Medium sized, moderate intensity primarily fixed perfusion defect involving the basal to distal inferior wall. Abnormal wall motion cannot exclude the presence of prior infarct. Worsening of perfusion in the mid to distal segments during stress is consistent with reversible ischemia. Pharmacologic stress ECG is negative for ischemia at level of heart rate achieved. No appreciable change from baseline ECG. Patient had 8/10 chest pain with pharmacologic stress. Gated EF = 55%. TID is present. Patient reports he continues to have CARDOSO. Cardiac risk factors include HTN, DM type II, HLD, prior tobacco use, and obesity. Cardiac catheterization R/B/A reviewed with patient. He would like to proceed pending approval for procedure by [facility]. office services manager consulted. (2) Atrial fibrillation Current Visit: Yes Status: Chronic Reports h/o atrial fibrillation. Appears to be chronic. AVG HR 89 bpm over 24 hours. On coumadin monitored by [facility]. Qualifiers: Atrial fibrillation type: unspecified Qualified Code(s): I48.91 - Unspecified atrial fibrillation (3) Hypertension Current Visit: Yes Status: Chronic B/p acceptable. Low sodium diet. Qualifiers: Hypertension type: essential hypertension Qualified Code(s): I10 - Essential (primary) hypertension Discussion w patient/family: The assessment and plan as outlined above was discussed with the patient and/or family members who expressed understanding and agreement. All questions were answered. Thank you for involving us in the care of your patient. Please call with any questions. History of Present Illness Consult date: 06/01/17 Requesting physician: Elizabeth Castillo Consult reason: Abnormal stress test Chief complaint: CARDOSO for three weeks History of present illness: Mr. Prieto is a 71 year old male with past medical history significant for atrial fibrillation on coumadin, HTN, HLD, DM type II, prior tobacco use, and obesity. He presents with the c/o CARDOSO. He was admitted last week and evaluated for his symptoms. He underwent a 2 day stress test that was found to be abnormal. The patient left due to concerns of no one feeding is animals. He left the hospital before his stress test was resulted. He returned yesterday with on-going dyspnea. Symptoms increase with activity and bending over. Reports BLE edema that improved during last hospital stay. C/o chest pain with deep breaths after doing yoga at the [facility]. Chest pain is now resolved. Denies history of CAD. He underwent LHC greater than 10 years ago that was normal per patient. Past Med Surg Social Fam HX - Past Medical History Attestation: Yes The following information was validated with the patient. Medical history: arthritis, atrial fibrillation, diabetes, GERD, hyperlipidemia , hypertension Psychiatric history: no psych history - Past Surgical History Surgical History: cholecystectomy, herniorrhaphy, orthopedic, other, sinus surgery - Social History Smoking Status: Former smoker Smokeless Tobacco Status: No Alcohol use: none Drug use: none - Family History Mother Living Status: Hx Family Cancer: Yes Medications and Allergies Amiodarone [Cordarone] 100 mg PO DAILY 10/04/14 [History] Aspirin Enteric Coated [Aspirin EC] 81 mg PO DAILY 10/04/14 [History] Diltiazem CD (24hr) [Cardizem CD] 180 mg PO DAILY 10/04/14 [History] Omeprazole [PriLOSEC] 20 mg PO DAILY 10/04/14 [History] Atorvastatin [Lipitor] 40 mg PO HS 01/09/16 [History] Cholecalciferol (D-3) [Vitamin D] 1,000 unit PO DAILY 10/27/16 [History] Levothyroxine [Synthroid] 150 mcg PO DAILY 10/27/16 [History] Lisinopril [Zestril] 5 mg PO DAILY 10/27/16 [History] Naproxen [Naprosyn] 250 mg PO BID 10/27/16 [History] Tamsulosin [Flomax] 0.4 mg PO HS 10/27/16 [History] metFORMIN [Glucophage] 500 mg PO BID 10/27/16 [History] Furosemide [Lasix] 20 mg PO DAILY #14 tablet 01/14/17 [Rx] Albuterol Sulfate [Proair Hfa] 1 - 2 puff IH Q6H PRN 05/30/17 [History] Ciprofloxacin [Cipro] 500 mg PO BID 05/30/17 [History] Docusate [Colace] 300 mg PO HS 05/30/17 [History] Gabapentin [Neurontin] 100 mg PO TID 05/30/17 [History] Sennosides [Senokot] 8.6 mg PO BID PRN 05/30/17 [History] Warfarin [Coumadin] 5 mg PO QPM 05/30/17 [History] 3 Allergy/AdvReac Type Severity Reaction Status Date / Time duloxetine AdvReac Unknown DIFFICULTY Verified 05/28/17 20:11 SPEAKING gabapentin AdvReac Unknown TREMORS Verified 05/28/17 20:11 Oxycodone AdvReac Unknown Hypotension Verified 05/28/17 20:11 pregabalin AdvReac Unknown TREMORS Verified 05/28/17 20:11 venlafaxine AdvReac Unknown Rash Verified 05/28/17 20:11 All Systems Review: The remainder of the systems were reviewed and are negative Physical Examination Vital Signs, Last 4 Hours Temp Pulse Resp BP Pulse Ox 06/01/17 08:05 98.3 F 79 17 117/73 93 General: Conversant, No Apparent Distress HEENT: Atraumatic, Normocephaly, Mucus Membranes Moist Neck: No JVD, Normal carotid pulses Cardiac: Reg Rate and Rhythm, Normal S1 and S2, No Murmur Lungs: Normal Breath Sounds, No Wheeze, Rales, Rhonchi Neuro: Alert and responsive, No focal deficits noted Abdomen: Soft, Non-Tender Skin: No rashes noted on visualized skin Musculoskeletal: No Chest Wall Tenderness Extremities: No Clubbing, No Cyanosis, Normal Pulses, Other (1+ bLe edema) Results 06/01/17 05:07 06/01/17 05:07 Lab Results 06/01/17 06/01/17 06/01/17 05:07 05:07 05:07 WBC 5.6 Hgb 14.0 Hct 40.9 Plt Count 118 L INR 1.6 Sodium 141 Potassium 3.9 Chloride 104 Carbon Dioxide 29 BUN 27 H Creatinine 1.19 Glucose 146 H Calcium 9.6 - Imaging and Cardiology Stress Test: report reviewed Echo: report reviewed - EKG Interpretation EKG results cardiology: personally reviewed Consult Discharge Plan - Plan Referrals: [facility],PCP [Primary Care Provider] - <Darron Warren - Last Filed: 06/01/17 10:35> Date of Encounter: 06/01/17 Time of Encounter: 10:00 - Attending Attestation I have personally performed a face to face evaluation on this patient. I have reviewed and agree with the care plan. History and Exam by me shows CC: Chest pain\ Pt presented to ER with compliants of chest pain, 8/10, accompanied by shortness of breath while feeding animals, improved but not relieved with SL ntg, eventually relieved with rest. PT had undergone previous stress test last week for similar discomfort, was abnormal, left heart cath recommended, pt declined, signed out against medical advice to feed his animals. He went home over the weekend, developed recurrent chest pain, returned for definitive care. He is now chest pain free. PMHx: Reviewed, reviewed stress imaging PE: pt seen and examined, agree with findings as documented, with the addition of decreased bilat radial pulse, 2/4, ulnar 3/4, Allens equivacal. IMP/Plan 1. Unstable angina with positive stress test for reversible ischemia in inferior wall, recommend LHC/poss. Risks and benefits of invasive strategy with possible coronary revascularization discussed, [facility], forwarded positive stress, all agree to proceed with LHC here today. Will place on chemical laboratory tester schedule. : Assessment and Plan Discussion w patient/family: The assessment and plan as outlined above was discussed with the patient and/or family members who expressed understanding and agreement. All questions were answered. Thank you for involving us in the care of your patient. Please call with any questions. History of Present Illness History of present illness: Mr. Prieto is a 71 year old male All Systems Review: The remainder of the systems were reviewed and are negative Physical Examination Vital Signs, Last 4 Hours Temp Pulse Resp BP Pulse Ox 06/01/17 08:05 98.3 F 79 17 117/73 93 Results 06/01/17 05:07 06/01/17 05:07 Lab Results 06/01/17 06/01/17 06/01/17 05:07 05:07 05:07 WBC 5.6 Hgb 14.0 Hct 40.9 Plt Count 118 L INR 1.6 Sodium 141 Potassium 3.9 Chloride 104 Carbon Dioxide 29 BUN 27 H Creatinine 1.19 Glucose 146 H Calcium 9.6
[2017-06-01] MEDS: Insulin LISPRO 300 UNITS/3 ML VIAL SQ SCH ×4 (08:43→19:58)
[2017-06-01] MEDS ORDERED: Heparin 1,000 UNITS/500 mL 500 ML ONE (09:51)
[2017-06-01] MEDS ORDERED: *HR* Heparin 10,000 UNIT/10 ML VIAL ONE (09:51)
[2017-06-01] MEDS ORDERED: ISOVUE-370 200 ML INFUS..BTL IV ONE ×2 (09:51→10:22)
[2017-06-01] MEDS ORDERED: Nitroglycerin 1,000 MCG/10 ML VIAL IV ONE (09:52)
[2017-06-01] MEDS ORDERED: 0.9 % Sodium Chloride 1,000 ML ONE ×2 (09:52→10:18)
[2017-06-01] MEDS ORDERED: *HR* Midazolam HCl 2 MG/2 ML VIAL ONE (10:31)
[2017-06-01] MEDS ORDERED: *HR* FentaNYL (PF) 100 MCG/2 ML VIAL ONE (10:31)
--- NOTE | 2017-06-01 10:48 | Pre-Sedation Evaluation ---
Pre-sedation evaluation - Pre-sedation checklist Date of procedure: 06/01/17 Procedure: LHC Recent Vitals: Last Vital Signs Temp 98.3 F 06/01/17 08:05 Pulse 79 06/01/17 08:05 Resp 17 06/01/17 08:05 BP 117/73 06/01/17 08:05 Pulse Ox 93 06/01/17 08:05 H&P (including ROS) documented in medical record: Yes Previous reaction to sedatives/anesthetics: No Dietary Status: NPO after Midnight Dentition: No loose teeth or bridges ASA Classification *see protocol: CLASS II-Mild systemic disease
--- NOTE | 2017-06-01 11:18 | Invasive Diagnostic Lab Proc ---
Name: Vin Prieto Date of Study: 06/01/2017 Date: 1945 Ht: 70.8in Medical Record#: [id number] Age: 71 Wt: 299.61lb Gender: Male BSA: 2.5 Order #: [id number] BMI: 42.04 Physicians Procedure Physician: Alex Mi MD Referring MD: Referring MD: Staff Name Position Time In Sites, Shantel RT (R) Monitor 10:39 AM Marlena Meza RT (R) Scrub 10:39 AM Destiny Murillo RN Filtration Supervisor 10:39 AM Indications Indication Abnormal Test - Stress Procedures Performed Procedure L HRT ARTERY/VENTRICLE ANGIO Pre-Procedure Checklist Informed consent is complete signed and on chart. H&P is on chart. ID band is on and ID verified with patient. Patient NPO for procedure The procedure was described for the patient and questions were answered. Blood Pressure: 127/91 ECG is on chart. Rhythm: NSR Plan of Care Patient will tolerate the procedure without complications. Adequate level of comfort will be maintained. Hemodynamics will remain stable Patient will recover from procedure without complications. Respiratory function will be maintained. Cardiac rhythm will remain stable. Patient temperature will be maintained. Patient and/or family have verbalized understanding of the procedure. Patient Education Chief Complaint/Reason for Test: Cardiac Cath Developmental Category: Geriatric (65+ years) Developmentally Appropriate for Age: Yes Learning Barriers: None Education Needs: Procedure Education Method: Verbal Information Taught: Cardiac Cath Educational Evaluation: Able to repeat information Intravenous Access Time IV Size Location DC'd Fluid/Drip Rate Units RN 22g 1" Patent On Arrival 0.9NaCl 25 ml/hr Allergies gabapentin venlafaxine duloxetine pregabalin Oxycodone Vital Signs Time BP (mmHg) HR (bpm) O2 Sat. RR (bpm) LOC / % 5 = Fully awake and oriented or at pre-proc level 10:41 AM / % 5 = Fully awake and oriented or at pre-proc level 10:36 AM 127 / 91 106 96 % 27 10:41 AM 114 / 84 93 95 % 12 10:46 AM 115 / 83 96 94 % 15 10:51 AM 117 / 83 104 98 % 17 10:56 AM 118 / 88 97 95 % 11 11:01 AM 125 / 80 120 96 % 14 11:06 AM 114 / 76 97 96 % 17 Procedural Medications Time Medication Dose Units Method Given By 10:40 AM Oxygen 2 L/min nasal cannula Destiny Murillo RN 10:41 AM Versed 1 mg Intravenous Destiny Murillo RN 10:41 AM Fentanyl 25 mcg Intravenous Destiny Murillo RN 10:45 AM Oxygen 4 L/min nasal cannula Destiny Murillo RN 10:50 AM Lidocaine 2% 10 ml Subcutaneous Alex Mi MD ASA Classification: CLASS II- Mild systemic disease (i.e. well-controlled diabetes, hypertension, asthma, cigarette smoking) Adri Score Preprocedure Postprocedure Activity 2- Moves 4 extremities sustained head lift Activity 2- Moves 4 extremities sustained head lift Circulation 2- SBP +/= 20 points of pre-anesthetic level Circulation 2- SBP +/= 20 points of pre-anesthetic level Consciousness 2- Awake and alert oriented x 3 Consciousness 2- Awake and alert oriented x 3 O2 Saturation 2- Able to maintain O2 satruation of 92% on room air O2 Saturation 2- Able to maintain O2 satruation of 92% on room air Respiratory 2- Able to deep breathe and cough well Respiratory 2- Able to deep breathe and cough well Total Score 10 Total Score 10 Contrast Agent: Isovue Diagnostic Contrast: 35 ml Total Contrast: 35 ml Fluoro Dose: 569 mGy Procedure Log Time Note Enter By 10:35 AM Vitals capture started with the following parameters, Patient=Adult, Interval=5 min, Initial Myesehxk=137 mmHg, Deflation Rate=3 mmHg, Cuff placed on Right Arm 10:36 AM TX=422 bpm, SYQW=288/91 mmhg, SpO2=96.0 %, Resp=27 B/min 10:39 AM Pt arrived to chemical lab technician 1 at 10:39 [email or web address] 10:39 AM Shantel Yee RT (R) Position: Monitor Time in: 10:39 [email or web address] 10:39 AM Marlena Meza RT (R) Position: Scrub Time in: 10:39 [email or web address] 10:39 AM Destiny Murillo RN Position: Filtration Supervisor Time in: 10:39 [email or web address] 10:40 AM Patient charges- Angio tray pack, Navilyst 3mm J, Pulse Oximetry and ACIST tubing and transducer [email or web address] 10:40 AM Case Delayed No [email or web address] 10:40 AM Physician arrived 10:40 [email or web address] 10:40 AM Meet and celestine completed [email or web address] 10:40 AM Sign in performed according to hospital policy. [email or web address] 10:40 AM Procedure start 10:40 [email or web address] 10:40 AM Hair removed from procedure site in holding area using clippers. Bilateral groin prepped with Chloraprep by Shantel Yee (Deb), then patient was draped. Skin intact. [email or web address] 10:40 AM Time: 10:40 Oxygen on at 2 L/min per nasal cannula by Destiny Murillo RN [email or web address] 10:41 AM Time: 10:41 Versed 1 mg Intravenous Given by Destiny Murillo RN [email or web address] 10:41 AM HR=93 bpm, QFOT=291/84 mmhg, SpO2=95.0 %, Resp=12 B/min 10:41 AM Time: 10:41 Fentanyl 25 mcg Intravenous Given by Destiny Murillo RN [email or web address] 10:41 AM Time: 10:41 Patient comfortable and pain free: Yes [email or web address] 10:41 AM Time: 10:41LOC: 5 = Fully awake and oriented or at pre-proc level [email or web address] 10:41 AM Clinical Presentation: Unstable angina [email or web address] 10:42 AM Recorded ECG: HR=97 Condition=Condition 1 10:46 AM Time: 10:45 Oxygen on at 4 L/min per nasal cannula by Destiny Murillo RN tsites 10:46 AM HR=96 bpm, WQNO=981/83 mmhg, SpO2=94.0 %, Resp=15 B/min 10:48 AM Pressure channel 1 zeroed. 10:50 AM Time out performed according to hospital policy tsites 10:50 AM Time: 10:50 10 ml Lidocaine 2% to right groin Subcutaneous Given by Alex Mi MD tsites 10:51 AM SS=243 bpm, BRLD=246/83 mmhg, SpO2=98.0 %, Resp=17 B/min 10:51 AM Micro-Introducer Kit utilized for sheath placement tsites 10:52 AM Access obtained by percutaneous puncture. 4Fr 10cm Micro kit sheath placed in right Femoral artery. [id number] tsites 10:52 AM 3cc of contrast injected tsites 10:53 AM Sheath exchanged for a 5 Fr 11 cm Terumo [place] sheath [id number] tsites 10:53 AM 5Fr FR 4 catheter inserted over the wire DN tsites 10:53 AM 0.035 145cm Navilyst 3mmJ wire [id number] tsites 10:54 AM RCA angiography performed in multiple views. tsites 10:55 AM Recorded Pressure: Ao, HR=93, Condition=Condition 1 (Aorta) Ao 102/79/90 10:55 AM wire reinserted catheter removed tsites 10:56 AM 5Fr FL 4 catheter inserted over the wire DN tsites 10:56 AM LCA angiography performed in multiple views. tsites 10:56 AM HR=97 bpm, DUPE=422/88 mmhg, SpO2=95.0 %, Resp=11 B/min 10:57 AM Recorded Pressure: Ao, HR=90, Condition=Condition 1 (Aorta) Ao 98/76/88 10:59 AM wire reinserted catheter removed tsites 10:59 AM 5Fr Pigtail catheter inserted over the wire DN tsites 10:59 AM EDP measured tsites 11:00 AM Recorded Pressure: LV, HR=99, Condition=Condition 1 (Left Ventricle) LV 99/14/16 11:01 AM FJ=432 bpm, CRPS=691/80 mmhg, SpO2=96.0 %, Resp=14 B/min 11:01 AM Recorded Pressure: LV, Ao, YI=187, Condition=Condition 1 (Left Ventricle) LV 92/6/17, (Aorta) Ao 105/48/79 11:01 AM wire reinserted catheter removed tsites 11:02 AM Procedure completed at 11:02 tsites 11:02 AM Sign out completed: Radiation Dose 569 mGy Fluoro Time: 3.3 Isovue 370 - 200ml contrast 35 ml given by Alex Mi MD. Complications: NoneCardiac Rehab Consult needed: NoConfirmed administered medications: Yes tsites 11:03 AM Isovue 370 - 200ml,1 Bottle(s) used. tsites 11:03 AM Arterial sheath pulled, Mynx closure device used and was Successful S/N. tsites 11:03 AM Did you address BLAYNE flow and Dominance? Yes tsites 11:03 AM Coronary Dominance: Left tsites 11:04 AM Estimated Blood Loss: minimal tsites 11:04 AM Post ECG NSR tsites 11:04 AM Post Blood Pressure 125/80 tsites 11:04 AM 11:04 Post Pulses Bilateral DP & PT 1+ tsites 11:04 AM Information taught Cardiac Cath and Mynx tsites 11:05 AM Education needs Procedure, Plan of Care, and Responsibilities of Patient in Care tsites 11:05 AM Learning barriers :None tsites 11:05 AM Education Methods Verbal tsites 11:05 AM Education evaluation Able to repeat information tsites 11:05 AM Site status No bleeding/hematoma - Rt Groin as reported by Veena Preciado MD, FACC at 11:05 tsites 11:05 AM Opsite applied tsites 11:05 AM Report given to Iza AYALA Pt taken to 3B Room #49. 11:05 tsites 11:05 AM Delay to floor No tsites 11:05 AM Patient out of room: 11:05 tsites 11:05 AM no family at this time tsites 11:06 AM HR=97 bpm, LHVQ=607/76 mmhg, SpO2=96.0 %, Resp=17 B/min 11:06 AM CathStat Complications Complication None Hemodynamics Pressures Site Systolic/A Wave Diastolic/V Wave Mean AO 102 79 90 AO 98 76 88 LV 99 14 16 LV 92 6 17 AO 105 48 79 Post Procedure Information Blood Pressure: 125/80 mmHg Rhythm: NSR Post procedural instructions were given Closure Device Time Device Success/Fail 06/01/2017 11:03:00 AM MynxGrip Successful Site Checks Time Location Status Staff Sheath In? Note 11:05 AM Rt Groin No bleeding/hematoma Veena Preciado MD, FACC Pulses Time Site Pre-Procedure Post-Procedure Note Bilateral DP & PT 1+ Bilateral radial 2+ 11:04:00 AM Bilateral DP & PT 1+ Updated by Shantel Yee RT (R) on 06/01/2017 11:12:07 AM Shantel Yee RT electronically signed on 06/01/2017 11:12:36 AM with status of Final
[2017-06-01] MEDS: Furosemide 40 MG/4 ML VIAL IVP SCH ×2 (12:10→16:54)
[2017-06-01] MEDS: Gabapentin 100 MG CAPSULE PO SCH ×3 (12:10→19:59)
[2017-06-01] MEDS: Diltiazem CD (24hr) 180 MG CAPSULE PO SCH (12:10)
[2017-06-01] MEDS: *HR* Amiodarone 200 MG TABLET PO SCH (12:10)
[2017-06-01] MEDS: Cholecalciferol (D-3) 1,000 UNIT TABLET PO SCH (12:10)
[2017-06-01] MEDS: Aspirin Enteric Coated 81 MG Tablet PO SCH (12:11)
--- NOTE | 2017-06-01 15:07 | Event Note ---
Date of Encounter: 06/01/17 Time of Encounter: 15:00 - Cardiology Event Note LHC completed. No intervention needed. Coronaries are angigraphically normal. R/ o other causes for SOB. Noted to have pulmonary vascular congestion on CXR during last stay. May have diastolic dysfunction. CHFpEF. TTE reviewed. Diastolic function was indeterminate. Agree with IV lasix until euvolemic. Low sodium diet. Monitor BMP and strict I&O. Symptoms have improved since last hospital stay. No further cardiac testing at this time. Out-pt f/u will be scheduled for CHF. Please call with questions.
--- NOTE | 2017-06-01 17:36 | Internal Med Progress Note ---
Date of Encounter: 06/01/17 Time of Encounter: 09:20 - Assessment and plan (1) Chest pain Current Visit: Yes Status: Acute Assessment and plan: Pt denies chest pain, only reports SOB today. Day 2 of stress test completed, LHC today showed coronary arteries were angiographically normal. Recommendations include aggressive risk factor modification. Home medical therapy. I attempted to discharge patient home after negative LHC. He began having multiple vague complaints of he was unable to describe well. Patient initially denied chest pain or shortness of breath, after stress test he reported shortness of breath only upon awakening one to 2 times over "several months" initially. When I told him he was going to go home, he reported that he was having shortness of breath when he awakened several times. He denied dyspnea on exertion, orthopnea. Physical exam is unremarkable. He also reports right flank pain that he believes may be causing his shortness of breath. There is no tenderness to palpation, no CVA tenderness. We will continue diuresis overnight with Lasix 40 mg IV twice daily, we will collect the urine. Most likely would discharge patient in the morning if both are negative. Continue telemetry Pain management. Qualifiers: Chest pain type: unspecified Qualified Code(s): R07.9 - Chest pain, unspecified (2) Diabetes Current Visit: Yes Status: Chronic Assessment and plan: Low-dose insulin sliding scale coverage with accu checks. Diabetic diet. Last A1c September, will redraw in the morning. Qualifiers: Diabetes mellitus type: type 2 Diabetes mellitus nursing home insulin use: without nursing home use Diabetes mellitus complication status: without complication Qualified Code(s): E11.9 - Type 2 diabetes mellitus without complications (3) Hypertension Current Visit: Yes Status: Chronic Assessment and plan: Chronic. Well controlled. Continue home medications. Qualifiers: Hypertension type: essential hypertension Qualified Code(s): I10 - Essential (primary) hypertension (4) Atrial fibrillation Current Visit: Yes Status: Chronic Assessment and plan: Continue home medications. INR subtherapeutic at 1.6 today. LHC today. We will restart warfarin tomorrow. Patient will need monitoring and medication adjustments after discharge. Qualifiers: Atrial fibrillation type: unspecified Qualified Code(s): I48.91 - Unspecified atrial fibrillation (5) Hyperlipidemia Current Visit: Yes Status: Chronic Assessment and plan: Chronic. Continue statin. Lipid panel ordered for morning. Qualifiers: Hyperlipidemia type: unspecified Qualified Code(s): E78.5 - Hyperlipidemia , unspecified (6) Congestive heart failure Current Visit: Yes Status: Acute Assessment and plan: Mild acute exacerbation of diastolic heart failure. Chest x-ray 05/28 with cardiomegaly and mild pulmonary vascular congestion. Fluid overloaded with 2+ lower extremity edema, that is improving with IV Lasix BID Strict I/Os Daily weight Fluid restriction diet started tonight 06/01. Lasix 40mg IV BID Monitor pulse ox Monitor labs Qualifiers: Heart failure type: combined systolic and diastolic Heart failure chronicity: acute on chronic Qualified Code(s): I50.43 - Acute on chronic combined systolic (congestive) and diastolic (congestive) heart failure (7) DVT prophylaxis Current Visit: Yes Status: Acute Assessment and plan: Patient on Coumadin with INR of 2.0 on admission currently being held for cardiac catheter in a.m. Will restart with pharmacy to dose. We will repeat INR in a.m. Unable to utilize SCDs secondary to lower extremity swelling (8) Bilateral lower extremity edema Current Visit: Yes Status: Acute Assessment and plan: Improving Venous Doppler studies negative for DVT Patient has venous stations skin changes Elevate when out out of bed SCDs Plan as above for CHF. - Time Spent With Patient Total time spent is greater than 50% in coordination of care (as documented) at patient's floor/unit and/or counseling patient: less than 15 minutes - Subjective Interval history: [facility] and again in the late afternoon. Pt was alert, oriented, pleasant and answered questions appropriately both times. He denies headache, n/v, SOB, chest pain. Pt later reports in the afternoon that his having SOB and right flank pain. Pt states that he has not felt well since his lithotripsy. Pt also unable to state when he is having SOB. He states that he has SOB only when he is waking up, denies history of anxiety. Pt states that he does not have CARDOSO, orthopnea, dyspnea at rest. When I suggested that he go home, he states that he has SOB when he awakens and that he cannot go home. He also states that he is having right flank pain without associated symptoms. I told him that I will keep him overnight for one more night of diuresis and for a UA then he will go home in the [facility]. He was agreeable. - Constitutional Vitals: Temp Pulse Resp BP Pulse Ox 97.5 F L 85 18 101/65 96 06/01/17 16:29 06/01/17 16:29 06/01/17 16:29 06/01/17 16:29 06/01/17 16:29 General appearance: Present: cooperative, A&O X 3, morbidly obese, pleasant, no acute distress, answers questions appropriately - Head Head exam: Present: atraumatic, normal inspection, normocephalic - Eye Eye exam: Present: normal appearance, conjuntiva pink, sclera anicteric - Neck Neck exam general surgery: Present: supple, trachea midline. Absent: lymphadenopathy - Respiratory Respiratory exam: Present: CTAB. Absent: accessory muscle use, chest wall tenderness, rales, respiratory distress, rhonchi, wheezes - Cardiovascular Cardiovascular exam: Present: RRR, +S1, +S2. Absent: diastolic murmur, gallop, rubs, systolic murmur - GI/Abdominal GI/Abdominal exam: Present: normal bowel sounds, soft. Absent: distended, guarding, hepatomegaly, tenderness - Extremities Exam Extremities exam: Present: normal capillary refill, normal inspection, pedal edema, warm, radial pulses palpable and symmetrical. Absent: calf tenderness, cyanotic, tenderness - Neurological Exam Neurological exam: Present: alert, oriented X3, no focal deficits. Absent: altered, facial droop, speech deficit - Skin Skin exam: Present: dry, intact, normal color, warm. Absent: rash Internal Medicine: Result - Labs CBC & Chem 7: 06/01/17 05:07 06/01/17 05:07 Labs: Short CBC 06/01/17 Range/Units 05:07 WBC 5.6 (4.3-11.1) K/mcL Hgb 14.0 (12.9-16.9) g/dL Hct 40.9 (37.5-50.1) % Plt Count 118 L (140-400) K/mcL Neutrophils # 3.6 (1.6-8.9) K/mcL BMP 06/01/17 05:07 Sodium 141 Potassium 3.9 Chloride 104 Carbon Dioxide 29 BUN 27 H Creatinine 1.19 Glucose 146 H Calcium 9.6 - ABG Interpretation ABG results: PT/INR, D-dimer PT 17.2 Seconds (9.4-12.1) H 06/01/17 05:07 Consult Discharge Plan - Plan Instructions: Angina (DC) Additional Instructions: RISK FACTORS: STOP SMOKING: If you smoke, STOP. Smoking or tobacco use significantly increases your risk of heart disease because nicotine causes the arteries to narrow or constrict. It also causes fats to stick to the artery. Your chances of having a heart attack are greatly increased if you continue to smoke. For more information, call the education line for smoking cessation 3-062-BXKTZHX EAT A LOW FAT/CHOLESTEROL/SODIUM DIET: This diet may help reduce your chances of having a heart attack. LIFTING: Avoid lifting anything more than 10 pounds for 5-7 days Prior to straining, laughing, sneezing and/or coughing, apply manual pressure directly over insertion site. ACTIVITY: You may walk or climb stairs as tolerated You can resume sexual activity as tolerated In general, you are encouraged to engage in a minimum of 30 minutes or more of moderate intensity physical activity, such as brisk walking, daily or at least 3 -4 times weekly BATHING Do not submerge the site into water (bath tub, hot tub, swimming pool) for 1 week. This can be a source for infection into the blood stream. You may shower after 24 hours SITE CARE: After 24 hours, you may remove the dressing and leave the site open to air. Keep the site clean and dry. Clean gently and pat dry. You can expect bruising and tenderness that gradually resolve within a week or two. Return to work as instructed per your physician Resume driving as instructed per physician Keep all scheduled follow up appointments Resume medications as instructed IMPORTANT: If prescribed a Platelet Aggregation Inhibitor such as, Plavix, Brilinta or Effient: Duration of therapy is minimum one year These medications are often used in combination with Aspirin in prevention of future heart attacks Never discontinue unless consult with your [employer] Secretary STROKE (CVA) Risk factors for a stroke are: Age, cigarette smoking, diabetes, excessive alcohol consumption, family history, high blood pressure, overweight, physical inactivity, prior stroke, heart attack, diagnosis of carotid artery stenosis or other artery disease. Warning signs: Sudden numbness or weakness of the face, arm or leg; especially on one side of the body, sudden confusion, trouble speaking or understanding, sudden trouble seeing in one or both eyes, sudden trouble walking, dizziness, loss of balance or coordination, sudden severe headache with no cause. Call 911 or go to the Emergency Room. CONGESTIVE HEART FAILURE: If you have been diagnosed with Congestive Heart Failure (CHF) and your symptoms return, make an appointment with your physician Weigh yourself daily. Notify your physician if you have a weight gain of two or more pounds in one day or five or more pounds in one week. If you experience any difficulty breathing, please call 911 BLEEDING: Although the risk of bleeding is minimal, it can happen. If you have any bleeding from the site, apply firm pressure above the puncture site for 10-15 minutes. If the bleeding does not stop, continue manual pressure and call 911 Contact your physician if: You develop a fever greater than 101 degrees Fahrenheit Your site becomes reddened or has any drainage You have an increase in pain or burning at the site or if a large knot forms at the site. If you experience chest pain, shortness of breath, dizziness, or extreme tiredness, stop the activity and rest. Please notify your physicians office if you experience any of these symptoms and they are not relieved by rest please call 911! [facility]errals: [facility]Primary Care Provider[facility] - (Please call for an appointment as soon as possible. )
[2017-06-01 20:06] LABS: Bilirubin,Urine Negative (Negative); Blood,Urine Negative (Negative); Clarity,Urine Clear (Clear); Color,Urine Yellow (Yellow); Glucose,Urine (UA) Normal (Normal); Ketones,Urine Negative (Negative); Leukocyte Esterase,Urine Moderate (Negative); Nitrite,Urine Negative (Negative); Protein,Urine Negative (Neg-Trace); Specific Gravity,Urine 1.022 (1.010-1.025); Urobilinogen,Urine Normal (Normal)
[2017-06-01 20:09] LABS: Bacteria,Urine None Seen per hpf (None-Few); Hyaline Casts,Urine None Seen per lpf (None-Few); Squamous Epithelial Cell,Urine Many per lpf (None-Few)
[2017-06-02 04:45] LABS: Basophils % 0.3 %; Eosinophils # 0.2 K/mcL (0.0-0.6); Eosinophils % 2.3 %; Hematocrit 39.7 % (37.5-50.1); Hemoglobin 13.7 g/dL (12.9-16.9); Immature Granulocytes % 0.3 % (0-4); Lymphocytes # 1.4 K/mcL (0.6-4.6); Lymphocytes % 20.9 %; Mean Corpuscular HGB Conc 34.5 g/dL (31.6-35.5); Mean Corpuscular Hemoglobin 31.9 pg (28.0-33.3); Mean Corpuscular Volume 92.5 fL (83.0-100.0); Mean Platelet Volume 10.2 fL (9.4-12.4); Monocytes # 0.6 K/mcL (0.0-1.3); Monocytes % 8.5 %; Neutrophils # 4.4 K/mcL (1.6-8.9); Platelet Count 135 K/mcL (140-400); Red Blood Count 4.29 M/mcL (4.19-5.50); Red Cell Distribution Width 13.7 % (11.5-14.5); Segmented Neutrophils % 67.7 %
[2017-06-02 05:01] LABS: Chol/HDL Ratio 3.5 (0-4.9)
[2017-06-02 07:11] VITALS: BP 110/77
--- NOTE | 2017-06-02 07:51 | Discharge Summary ---
- NOTES TO OUTPATIENT PROVIDER Notes to Outpatient Provider: Pt was admitted for SOB on 05/30. Pt had several visits and left AMA to go home to care for his pets. Initial visit to the ED , left AMA, returned later and was admitted. Pt required a 2 day stress and left AMA again after 1st day. Pt returned on 05/30, was admitted again and finished stress. Stress was abnormal, LHC completed 06/01, angiographically normal coronary arteries. Pt was to be discharged, but did not want to leave due to continued SOB and right flank pain,stating that he has not felt well since his lithotripsy. Pt states that he has SOB when he awakens "sometimes", denied SOB at rest or CARDOSO. Pt discharged after UA and another night of diuresis , stating he felt better. Warfarin was stopped for LHC, restarted 24 hours after. Pt was not therapeutic on arrival, will need INR and medication dosing until therapeutic. Pt has been sent with order for INR for 06/03. Orders not resulted at time of discharge: Pending orders 06/02/17 03:26 Hgb A1C AM 0400 Date of Encounter: 06/02/17 Time of Encounter: 09:50 - Discharge Diagnosis (1) Chest pain Priority: Primary Status: Acute Assessment and Plan: Pt denies chest pain, reports that SOB has improved. He has been ambulating all over the unit this a.m without difficulty. Physical exam is unremarkable. Pt reports that right flank pain has improved, as well. Qualifiers: Chest pain type: unspecified Qualified Code(s): R07.9 - Chest pain, unspecified (2) Diabetes Priority: Secondary Status: Chronic Assessment and Plan: A1c not completed at time of discharge. Continue home dose of Metformin, accuchecks per home regimen. 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 Well controlled. Continue home medications. Qualifiers: Hypertension type: essential hypertension Qualified Code(s): I10 - Essential (primary) hypertension (4) Atrial fibrillation Priority: Secondary Status: Chronic Assessment and Plan: Continue home medications. Restart Warfarin. Close follow up with INR with PCP after discharge. Patient will need monitoring and medication adjustments after discharge. D/w cardiology RESPIRATORY TECH, ok to restart Warfarin now. Qualifiers: Atrial fibrillation type: unspecified Qualified Code(s): I48.91 - Unspecified atrial fibrillation (5) Hyperlipidemia Priority: Secondary Status: Chronic Assessment and Plan: Chronic. Continue statin. Triglycerides elevated, HDL low. Qualifiers: Hyperlipidemia type: unspecified Qualified Code(s): E78.5 - Hyperlipidemia , unspecified (6) Congestive heart failure Priority: Secondary Status: Chronic Assessment and Plan: Mild acute exacerbation of diastolic heart failure. Improved. continue home dose of Lasix. Pt denies SOB today, is ambulating all over unit and speaking with staff at nurse's station without difficulty. Strict I and O not recorded per order, weights are most likely not accurate. Qualifiers: Heart failure type: combined systolic and diastolic Heart failure chronicity: acute on chronic Qualified Code(s): I50.43 - Acute on chronic combined systolic (congestive) and diastolic (congestive) heart failure (7) DVT prophylaxis Priority: Secondary Status: Acute Assessment and Plan: Restart Warfarin. Pt has been ambulatory. (8) Bilateral lower extremity edema Priority: Secondary Status: Acute Assessment and Plan: Improving, +1 non- pitting Venous Doppler studies negative for DVT Patient has venous stations skin changes Elevate when out out of bed SCDs during admission (9) Morbid obesity with BMI of 40.0-44.9, adult Priority: Secondary Status: Chronic Assessment and Plan: Chronic. Encourage lifestyle modifications. Hospital course: Mr. Prieto is a 71 year old male with PMH of CAD, HTN, DM, HLD, CHF, and obesity. Pt admitted for SOB, stress abnormal. Pt taken for [facility], coronary arteries angiographically free of disease. Warfarin started prior to discharge, will continue after discharge and was sent with prescription for INR tomorrow. Pt has been instructed to follow up with PCP for monitoring. Pt denies SOB today , peripheral edema has improved. He has been ambulating all over the unit and talking to all staff without difficulty. His labs and vitals are WNL and he is appropriate for discharge. Discharge discussed with: patient, nurse - Time Spent with Patient Total time spent providing and/or coordinating discharge services: Less than 30 minutes - Discharge Medications Home Medications: Amiodarone [Cordarone] 100 mg PO DAILY 10/04/14 [History] Aspirin Enteric Coated [Aspirin EC] 81 mg PO DAILY 10/04/14 [History] Diltiazem CD (24hr) [Cardizem CD] 180 mg PO DAILY 10/04/14 [History] Omeprazole [PriLOSEC] 20 mg PO DAILY 10/04/14 [History] Atorvastatin [Lipitor] 40 mg PO HS 01/09/16 [History] Cholecalciferol (D-3) [Vitamin D] 1,000 unit PO DAILY 10/27/16 [History] Levothyroxine [Synthroid] 150 mcg PO DAILY 10/27/16 [History] Lisinopril [Zestril] 5 mg PO DAILY 10/27/16 [History] Naproxen [Naprosyn] 250 mg PO BID 10/27/16 [History] Tamsulosin [Flomax] 0.4 mg PO HS 10/27/16 [History] metFORMIN [Glucophage] 500 mg PO BID 10/27/16 [History] Albuterol Sulfate [Proair Hfa] 1 - 2 puff IH Q6H PRN 05/30/17 [History] Ciprofloxacin [Cipro] 500 mg PO BID 05/30/17 [History] Docusate [Colace] 300 mg PO HS 05/30/17 [History] Gabapentin [Neurontin] 100 mg PO TID 05/30/17 [History] Sennosides [Senokot] 8.6 mg PO BID PRN 05/30/17 [History] Warfarin [Coumadin] 5 mg PO QPM 05/30/17 [History] Furosemide [Lasix] 20 mg PO DAILY #14 tablet 06/02/17 [Rx] Allergies/Adverse Reactions: 3 Allergy/AdvReac Type Severity Reaction Status Date / Time duloxetine AdvReac Unknown DIFFICULTY Verified 05/28/17 20:11 SPEAKING gabapentin AdvReac Unknown TREMORS Verified 05/28/17 20:11 Oxycodone AdvReac Unknown Hypotension Verified 05/28/17 20:11 pregabalin AdvReac Unknown TREMORS Verified 05/28/17 20:11 venlafaxine AdvReac Unknown Rash Verified 05/28/17 20:11 Date of admission: 05/30/17 01:11 Primary care physician: [facility] Consults: 05/31/17 15:59 Consult to Cardiology [CONS] Routine Comment: Consulting Provider: Cardiology Julia Reason for Consult: abnormal stress, known history CAD Time Notified: 13:29 Call Completed: Yes 06/01/17 07:31 Consult to [employer] [CONS] Routine Reason for SW Consult: patient is from the [place]. Someone needs to speak with Dinh Hunter at the [place] regarding coverage for his care here. They gave the code 6006. Discharging clinician: Jannie Sosa Anticipated date of discharge: 06/02/17 - Constitutional Vitals: Temp Pulse Resp BP Pulse Ox 97.4 F L 95 16 110/77 98 06/02/17 07:05 06/02/17 07:05 06/02/17 07:05 06/02/17 07:05 06/02/17 07:05 General appearance: Present: cooperative, A&O X 3, morbidly obese, pleasant, no acute distress, answers questions appropriately - Head Head exam: Present: atraumatic, normocephalic - Eye Eye exam: Present: PERRL, conjuntiva pink, sclera anicteric Pupils: Present: PERRL - Neck Neck exam general surgery: Present: supple, trachea midline. Absent: lymphadenopathy - Respiratory Respiratory exam: Present: CTAB. Absent: accessory muscle use, rales, rhonchi, wheezes - Cardiovascular Cardiovascular exam: Present: RRR, +S1, +S2. Absent: diastolic murmur, gallop, rubs, systolic murmur - GI/Abdominal GI/Abdominal exam: Present: normal bowel sounds, soft, no peritoneal signs. Absent: distended, tenderness - Extremities Exam Extremities exam: Present: warm, radial pulses palpable and symmetrical. Absent : calf tenderness, cyanotic, pedal edema - Neurological Exam Neurological exam: Present: CN II-XII intact, oriented X3, no focal deficits. Absent: pronater drift, facial droop, speech deficit - Skin Skin exam: Present: dry, intact - Patient Status Disposition: Home, Self-Care Condition: Good Functional capacity at discharge: uses cane/walker Overall status at discharge: patient is back to baseline - Discharge Instructions Instructions: Angina (DC) Follow Up With: [facility] [Primary Care Provider] - (Please call for an appointment as soon as possible. ) Additional Instructions: *Return to the ER if your symptoms return or worsen, or if you have any other problems or concerns. *See your PCP in the next 7-10 days for a recheck *Take your medications as directed and resume your normal home medications *Follow a diabetic diet, increase your exercise, and watch your fluid and sodium intake. *Return to your normal activities as tolerated. You will need close follow up with labs to monitor your INR and dose Warfarin. RISK FACTORS: STOP SMOKING: If you smoke, STOP. Smoking or tobacco use significantly increases your risk of heart disease because nicotine causes the arteries to narrow or constrict. It also causes fats to stick to the artery. Your chances of having a heart attack are greatly increased if you continue to smoke. For more information, call the education line for smoking cessation 2-299-JEELTTR EAT A LOW FAT/CHOLESTEROL/SODIUM DIET: This diet may help reduce your chances of having a heart attack. LIFTING: Avoid lifting anything more than 10 pounds for 5-7 days Prior to straining, laughing, sneezing and/or coughing, apply manual pressure directly over insertion site. ACTIVITY: You may walk or climb stairs as tolerated You can resume sexual activity as tolerated In general, you are encouraged to engage in a minimum of 30 minutes or more of moderate intensity physical activity, such as brisk walking, daily or at least 3 -4 times weekly BATHING Do not submerge the site into water (bath tub, hot tub, swimming pool) for 1 week. This can be a source for infection into the blood stream. You may shower after 24 hours SITE CARE: After 24 hours, you may remove the dressing and leave the site open to air. Keep the site clean and dry. Clean gently and pat dry. You can expect bruising and tenderness that gradually resolve within a week or two. Return to work as instructed per your physician Resume driving as instructed per physician Keep all scheduled follow up appointments Resume medications as instructed IMPORTANT: If prescribed a Platelet Aggregation Inhibitor such as, Plavix, Brilinta or Effient: Duration of therapy is minimum one year These medications are often used in combination with Aspirin in prevention of future heart attacks Never discontinue unless consult with your Electrotherapist STROKE (CVA) Risk factors for a stroke are: Age, cigarette smoking, diabetes, excessive alcohol consumption, family history, high blood pressure, overweight, physical inactivity, prior stroke, heart attack, diagnosis of carotid artery stenosis or other artery disease. Warning signs: Sudden numbness or weakness of the face, arm or leg; especially on one side of the body, sudden confusion, trouble speaking or understanding, sudden trouble seeing in one or both eyes, sudden trouble walking, dizziness, loss of balance or coordination, sudden severe headache with no cause. Call 911 or go to the Emergency Room. CONGESTIVE HEART FAILURE: If you have been diagnosed with Congestive Heart Failure (CHF) and your symptoms return, make an appointment with your physician Weigh yourself daily. Notify your physician if you have a weight gain of two or more pounds in one day or five or more pounds in one week. If you experience any difficulty breathing, please call 911 BLEEDING: Although the risk of bleeding is minimal, it can happen. If you have any bleeding from the site, apply firm pressure above the puncture site for 10-15 minutes. If the bleeding does not stop, continue manual pressure and call 911 Contact your physician if: You develop a fever greater than 101 degrees Fahrenheit Your site becomes reddened or has any drainage You have an increase in pain or burning at the site or if a large knot forms at the site. If you experience chest pain, shortness of breath, dizziness, or extreme tiredness, stop the activity and rest. Please notify your physicians office if you experience any of these symptoms and they are not relieved by rest please call 911! - Diet and Activity Activity: increase activity as tolerated Diet: diabetic diet, low salt diet, other (Low sodium, fluid restriction, around 2 liters daily)
[2017-06-02] MEDS: Gabapentin 100 MG CAPSULE PO SCH (08:12)
[2017-06-02] MEDS: Diltiazem CD (24hr) 180 MG CAPSULE PO SCH (08:12)
[2017-06-02] MEDS: Cholecalciferol (D-3) 1,000 UNIT TABLET PO SCH (08:12)
[2017-06-02] MEDS: Furosemide 40 MG/4 ML VIAL IVP SCH (08:12)
[2017-06-02] MEDS: *HR* Amiodarone 200 MG TABLET PO SCH (08:12)
[2017-06-02] MEDS: Aspirin Enteric Coated 81 MG Tablet PO SCH (08:12)
[2017-06-02] MEDS: Insulin LISPRO 300 UNITS/3 ML VIAL SQ SCH (08:13)
[2017-06-02] MEDS ORDERED: *HR* Warfarin 5 MG TABLET PO SCH ×2 (11:15→18:00)
--- NOTE | 2017-06-02 11:48 | Event Note ---
Date of Encounter: 06/02/17 Time of Encounter: 11:45 I spoke with pharmacist, Jannie, at [facility], to verbalize my concern over him being off of his Warfarin and getting follow up to return to therapeutic level. She states to continue his home dose of Warfarin and pt already has an appointment to follow up on 06/09 at the [place] [facility]. She states that he does not need to have another draw tomorrow.
[2017-06-02 17:43] LABS: Estimated Average Glucose 143 mg/dl; Hemoglobin A1C 6.6 %
[2017-06-02] MEDS ORDERED: *HR* Metformin 500 MG TABLET PO SCH (21:00)
== END 2017-06-02 12:12 | disposition home or self-care (01) ==
LOC: EMEROO 23:56 → 3BNU 23:56
PROVIDERS: ADMIT Internal Medicine; ATTEND Internal Medicine

== ENCOUNTER 2017-11-01 03:36 | Inpatient (IN) ==
[2017-11-01] MEDS ORDERED: Ipratropium/Albuterol Neb 3 ML IH ONE (03:56)
[2017-11-01] MEDS ORDERED: methylPREDNISolone 125 MG/2 ML VIAL IVP ONE (03:56)
--- NOTE | 2017-11-01 04:00 | Emergency Department Note ---
Disposition Clinical Impression: Acute dyspnea Disposition: Still a Patient Condition: Fair Forms: ED Satisfaction Letter Time of Disposition: 05:47 SOB HPI - General Stated Complaint: SHERRY Time Seen by Provider: 11/01/17 03:39 Source: patient Mode of arrival: ambulatory Limitations: no limitations Nursing Notes Reviewed: Yes Vital Signs Reviewed: Yes - History of Present Illness 72-year-old male with a history of sleep apnea, diabetes, hyperlipidemia, hypertension, and chronic atrial fibrillation presents for evaluation of one week's worth of shortness of breath is worse with exertion radiating left-sided chest pain. Symptoms began approximately one week ago. He states that he has been seen by the [facility] on 3 instances since symptom onset. He states that he has had chest x-rays performed which turned noncontributory. He is also been given albuterol inhaler for an as-needed basis. He states that he has had no improvement with the albuterol inhaler. He denies any cough, hemoptysis, fever, chills, nausea, vomiting, diaphoresis. He denies any increased swelling or pain in the bilateral lower extremities. He does complain of some diffuse abdominal tenderness as well as a sensation of worsening "bloating" of the abdomen. He states that the chest pain is also worsened with exertion. He denies any obvious alleviating factors for his pain. He states he is supposed worsening At night, however does not because he believes that his machine may be malfunctioning Pt Subjective Complaint: shortness of breath, chest pain Onset (ago): week(s) (1) Severity: moderate Consistency/Duration: constant Improves with: nothing Worsens with: exertion Known history of: diabetes Associated symptoms: Reports: chest pain, abdominal pain. Denies: pain with inspiration, fever, cough, wheezing, sputum production, orthopnea, lower extremity pain, palpitations, hemoptysis, diaphoresis, nausea/vomiting Treatment prior to arrival: none Cough present: No - Related Data Home Medications Medication Instructions Recorded Confirmed Amiodarone [Cordarone] 100 mg PO DAILY 10/04/14 05/30/17 Aspirin Enteric Coated [Aspirin EC] 81 mg PO DAILY 10/04/14 05/30/17 Diltiazem CD (24hr) [Cardizem CD] 180 mg PO DAILY 10/04/14 05/30/17 Omeprazole [PriLOSEC] 20 mg PO DAILY 10/04/14 05/30/17 Atorvastatin [Lipitor] 40 mg PO HS 01/09/16 05/30/17 Cholecalciferol (D-3) [Vitamin D] 1,000 unit PO DAILY 10/27/16 05/30/17 Levothyroxine [Synthroid] 150 mcg PO DAILY 10/27/16 05/30/17 Lisinopril [Zestril] 5 mg PO DAILY 10/27/16 05/30/17 Naproxen [Naprosyn] 250 mg PO BID 10/27/16 05/30/17 Tamsulosin [Flomax] 0.4 mg PO HS 10/27/16 05/30/17 metFORMIN [Glucophage] 500 mg PO BID 10/27/16 05/30/17 Albuterol Sulfate [Proair Hfa] 1 - 2 puff IH Q6H PRN 05/30/17 05/30/17 Ciprofloxacin [Cipro] 500 mg PO BID 05/30/17 05/30/17 Docusate [Colace] 300 mg PO HS 05/30/17 05/30/17 Gabapentin [Neurontin] 100 mg PO TID 05/30/17 05/30/17 Sennosides [Senokot] 8.6 mg PO BID PRN 05/30/17 05/30/17 Warfarin [Coumadin] 5 mg PO QPM 05/30/17 05/30/17 Previous Rx's Medication Instructions Recorded Furosemide [Lasix] 20 mg PO DAILY #14 tablet 06/02/17 Allergies Allergy/AdvReac Type Severity Reaction Status Date / Time duloxetine AdvReac Unknown DIFFICULTY Verified 05/28/17 20:11 SPEAKING gabapentin AdvReac Unknown TREMORS Verified 05/28/17 20:11 Oxycodone AdvReac Unknown Hypotension Verified 05/28/17 20:11 pregabalin AdvReac Unknown TREMORS Verified 05/28/17 20:11 venlafaxine AdvReac Unknown Rash Verified 05/28/17 20:11 All systems ED: reviewed and negative except as stated. Review of Systems: As Per HPI Constitutional: Denies: fever, chills, weakness, weight change Eyes: Denies: eye pain, eye discharge, vision change ENT ED: Denies: ear pain, throat pain, dental pain, hearing loss, epistaxis, congestion, dysphagia Cardiovascular: Reports: as per HPI, chest pain, dyspnea on exertion. Denies: palpitations, edema, syncope Respiratory: Reports: as per HPI, dyspnea. Denies: cough, wheezes, hemoptysis, stridor, sputum production Gastrointestinal: Reports: as per HPI, abdominal pain, other (Distention). Denies: nausea, vomiting, diarrhea, constipation, hematemesis, melena, hematochezia Genitourinary: Denies: urgency, dysuria, frequency, hematuria Musculoskeletal: Denies: back pain, neck pain, arthralgia, myalgia Integumentary: Denies: rash, abrasion, lesions Neurological: Denies: headache, weakness, numbness, paresthesias, confusion, abnormal gait, vertigo Psychiatric: Denies: anxiety, depression, suicidal thoughts, homicidal thoughts , auditory hallucinations, visual hallucinations Endocrine: Denies: fatigue Hematological/Lymphatic: Denies: easy bleeding, easy bruising Allergic/Immunologic: Denies: facial swelling, urticaria Past Medical History - Past Medical History Attestation: Yes The following information was validated with the patient. Source: patient, nursing notes reviewed Medical history: Reports: arthritis, atrial fibrillation, diabetes, GERD, hyperlipidemia, hypertension Surgical history: Reports: cholecystectomy, herniorrhaphy, orthopedic, other, sinus surgery Psychiatric history: Reports: no psych history - Social History Smoking Status: Former smoker Smokeless Tobacco Status: No Alcohol use: Reports: none Drug use: Reports: none Physical Exam - General Limitations: no limitations General appearance: alert, in no apparent distress - Head Head exam: atraumatic, normocephalic, normal inspection - Eye Eye exam: Present: normal appearance, PERRL, EOMI. Absent: nystagmus - ENT ENT exam: mucous membranes moist - Neck Neck exam: Present: normal inspection, full ROM, trachea midline - Chest Chest inspection: Present: normal inspection, symmetric chest wall rise - Respiratory Respiratory exam: Present: normal lung sounds bilaterally. Absent: respiratory distress, wheezes, stridor, accessory muscle use, prolonged expiratory phase - Cardiovascular Cardiovascular exam: Present: tachycardia, irregular rhythm, normal heart sounds - Abdominal Exam Abdominal exam: Present: soft, tenderness, distention (Diffuse), normal bowel sounds. Absent: guarding, rebound, rigidity Abdominal tenderness: Present: diffuse, mild - Extremities Exam Extremities exam: Present: pedal edema (1-2+ pretibial edema noted bilaterally) - Neurological Exam Neurological exam: Present: alert, oriented X3 - Psychiatric Psychiatric exam: Present: normal affect, normal mood - Skin Skin exam: Present: warm, dry, intact, normal color. Absent: rash Course Vital Signs Temperature 98.2 F 11/01/17 03:42 Pulse Rate 87 11/01/17 03:42 Respiratory Rate 20 11/01/17 03:42 Blood Pressure 121/88 11/01/17 03:42 O2 Sat by Pulse Oximetry 100 11/01/17 03:42 Temperature 98.2 F 11/01/17 03:42 Pulse Rate 97 11/01/17 04:00 Respiratory Rate 20 11/01/17 04:00 Blood Pressure 121/88 11/01/17 04:00 O2 Sat by Pulse Oximetry 100 11/01/17 04:00 Oxygen Delivery Oxygen Delivery Nasal Cannula Shortness of Breath/Dyspnea - Medical Records Medical records reviewed: Yes I reviewed the patient's medical records. - Lab Data Lab results reviewed: Yes I reviewed the patient's lab results. Lab results narrative: Lab Results 11/01/17 11/01/17 11/01/17 Range/Units 03:57 03:57 03:57 WBC 6.5 (4.3-11.1) K/mcL RBC 4.43 (4.19-5.50) M/mcL Hgb 13.8 (12.9-16.9) g/dL Hct 39.7 (37.5-50.1) % MCV 89.6 (83.0-100.0) fL MCH 31.2 (28.0-33.3) pg MCHC 34.8 (31.6-35.5) g/dL RDW 13.7 (11.5-14.5) % Plt Count 138 L (140-400) K/mcL MPV 10.0 (9.4-12.4) fL Immature Gran % 0.2 (0-4) % Seg Neutrophils % 63.0 % Lymphocytes % 25.7 % Monocytes % 8.3 % Eosinophils % 2.5 % Basophils % 0.3 % Neutrophils # 4.1 (1.6-8.9) K/mcL Lymphocytes # 1.7 (0.6-4.6) K/mcL Monocytes # 0.5 (0.0-1.3) K/mcL Eosinophils # 0.2 (0.0-0.6) K/mcL Basophils # 0.0 (0.0-0.2) K/mcL PT 27.4 H (9.4-12.1) Seconds INR 2.4 APTT 35.7 (26.0-36.0) Seconds D-Dimer < 215 (0-500) ng/mLFEU Sodium (136-145) mEq/L Potassium (3.5-5.1) mEq/L Chloride (98-107) mEq/L Carbon Dioxide (23-29) mEq/L BUN (8-23) mg/dL Creatinine (0.70-1.30) mg/dL Est GFR ( Amer) (> 60) Est GFR (Non-Af Amer) (> 60) BUN/Creatinine Ratio (6-26) Glucose (70-105) mg/dL Calculated Osmolality (280-300) Lactic Acid (0.5-2.2) mmol/L Calcium (8.6-10.3) mg/dL Total Bilirubin (0.3-1.0) mg/dL AST (13-39) Units/L ALT (7-52) Units/L Alkaline Phosphatase (34-104) Units/L Troponin I < 0.03 (< 0.04) ng/mL B-Natriuretic Peptide (Less than 100) pg/mL Serum Total Protein (6.4-8.9) g/dL Albumin (3.5-5.7) g/dL Globulin (2.4-3.5) g/dL Albumin/Globulin Ratio (1.1-2.2) 11/01/17 11/01/17 11/01/17 Range/Units 03:57 03:57 04:24 WBC (4.3-11.1) K/mcL RBC (4.19-5.50) M/mcL Hgb (12.9-16.9) g/dL Hct (37.5-50.1) % MCV (83.0-100.0) fL MCH (28.0-33.3) pg MCHC (31.6-35.5) g/dL RDW (11.5-14.5) % Plt Count (140-400) K/mcL MPV (9.4-12.4) fL Immature Gran % (0-4) % Seg Neutrophils % % Lymphocytes % % Monocytes % % Eosinophils % % Basophils % % Neutrophils # (1.6-8.9) K/mcL Lymphocytes # (0.6-4.6) K/mcL Monocytes # (0.0-1.3) K/mcL Eosinophils # (0.0-0.6) K/mcL Basophils # (0.0-0.2) K/mcL PT (9.4-12.1) Seconds INR APTT (26.0-36.0) Seconds D-Dimer (0-500) ng/mLFEU Sodium 139 (136-145) mEq/L Potassium 3.5 (3.5-5.1) mEq/L Chloride 106 (98-107) mEq/L Carbon Dioxide 25 (23-29) mEq/L BUN 16 (8-23) mg/dL Creatinine 0.99 (0.70-1.30) mg/dL Est GFR ( Amer) > 60 (> 60) Est GFR (Non-Af Amer) > 60 (> 60) BUN/Creatinine Ratio 16 (6-26) Glucose 168 H (70-105) mg/dL Calculated Osmolality 293 (280-300) Lactic Acid 2.2 (0.5-2.2) mmol/L Calcium 9.7 (8.6-10.3) mg/dL Total Bilirubin 0.9 (0.3-1.0) mg/dL AST 23 (13-39) Units/L ALT 20 (7-52) Units/L Alkaline Phosphatase 64 (34-104) Units/L Troponin I (< 0.04) ng/mL B-Natriuretic Peptide 36 (Less than 100) pg/mL Serum Total Protein 6.8 (6.4-8.9) g/dL Albumin 4.4 (3.5-5.7) g/dL Globulin 2.4 (2.4-3.5) g/dL Albumin/Globulin Ratio 1.8 (1.1-2.2) Result diagrams: 11/01/17 03:57 11/01/17 03:57 Lab Results 11/01/17 11/01/17 11/01/17 Range/Units 03:57 03:57 03:57 WBC 6.5 (4.3-11.1) K/mcL RBC 4.43 (4.19-5.50) M/mcL Hgb 13.8 (12.9-16.9) g/dL Hct 39.7 (37.5-50.1) % MCV 89.6 (83.0-100.0) fL MCH 31.2 (28.0-33.3) pg MCHC 34.8 (31.6-35.5) g/dL RDW 13.7 (11.5-14.5) % Plt Count 138 L (140-400) K/mcL MPV 10.0 (9.4-12.4) fL Immature Gran % 0.2 (0-4) % Seg Neutrophils % 63.0 % Lymphocytes % 25.7 % Monocytes % 8.3 % Eosinophils % 2.5 % Basophils % 0.3 % Neutrophils # 4.1 (1.6-8.9) K/mcL Lymphocytes # 1.7 (0.6-4.6) K/mcL Monocytes # 0.5 (0.0-1.3) K/mcL Eosinophils # 0.2 (0.0-0.6) K/mcL Basophils # 0.0 (0.0-0.2) K/mcL PT 27.4 H (9.4-12.1) Seconds INR 2.4 APTT 35.7 (26.0-36.0) Seconds D-Dimer < 215 (0-500) ng/mLFEU Sodium (136-145) mEq/L Potassium (3.5-5.1) mEq/L Chloride (98-107) mEq/L Carbon Dioxide (23-29) mEq/L BUN (8-23) mg/dL Creatinine (0.70-1.30) mg/dL Est GFR ( Amer) (> 60) Est GFR (Non-Af Amer) (> 60) BUN/Creatinine Ratio (6-26) Glucose (70-105) mg/dL Calculated Osmolality (280-300) Lactic Acid (0.5-2.2) mmol/L Calcium (8.6-10.3) mg/dL Total Bilirubin (0.3-1.0) mg/dL AST (13-39) Units/L ALT (7-52) Units/L Alkaline Phosphatase (34-104) Units/L Troponin I < 0.03 (< 0.04) ng/mL B-Natriuretic Peptide (Less than 100) pg/mL Serum Total Protein (6.4-8.9) g/dL Albumin (3.5-5.7) g/dL Globulin (2.4-3.5) g/dL Albumin/Globulin Ratio (1.1-2.2) 11/01/17 11/01/17 11/01/17 Range/Units 03:57 03:57 04:24 WBC (4.3-11.1) K/mcL RBC (4.19-5.50) M/mcL Hgb (12.9-16.9) g/dL Hct (37.5-50.1) % MCV (83.0-100.0) fL MCH (28.0-33.3) pg MCHC (31.6-35.5) g/dL RDW (11.5-14.5) % Plt Count (140-400) K/mcL MPV (9.4-12.4) fL Immature Gran % (0-4) % Seg Neutrophils % % Lymphocytes % % Monocytes % % Eosinophils % % Basophils % % Neutrophils # (1.6-8.9) K/mcL Lymphocytes # (0.6-4.6) K/mcL Monocytes # (0.0-1.3) K/mcL Eosinophils # (0.0-0.6) K/mcL Basophils # (0.0-0.2) K/mcL PT (9.4-12.1) Seconds INR APTT (26.0-36.0) Seconds D-Dimer (0-500) ng/mLFEU Sodium 139 (136-145) mEq/L Potassium 3.5 (3.5-5.1) mEq/L Chloride 106 (98-107) mEq/L Carbon Dioxide 25 (23-29) mEq/L BUN 16 (8-23) mg/dL Creatinine 0.99 (0.70-1.30) mg/dL Est GFR ( Amer) > 60 (> 60) Est GFR (Non-Af Amer) > 60 (> 60) BUN/Creatinine Ratio 16 (6-26) Glucose 168 H (70-105) mg/dL Calculated Osmolality 293 (280-300) Lactic Acid 2.2 (0.5-2.2) mmol/L Calcium 9.7 (8.6-10.3) mg/dL Total Bilirubin 0.9 (0.3-1.0) mg/dL AST 23 (13-39) Units/L ALT 20 (7-52) Units/L Alkaline Phosphatase 64 (34-104) Units/L Troponin I (< 0.04) ng/mL B-Natriuretic Peptide 36 (Less than 100) pg/mL Serum Total Protein 6.8 (6.4-8.9) g/dL Albumin 4.4 (3.5-5.7) g/dL Globulin 2.4 (2.4-3.5) g/dL Albumin/Globulin Ratio 1.8 (1.1-2.2) - Radiology Data Radiology results reviewed: Yes I reviewed the patient's radiology results. Chest X-Ray 11/01/17 03:56 IMPRESSION: Stable cardiomegaly without evidence of cardiac decompensation. D/ / Caesar Evangelsita / Caesar Evangelista Interpreting Provider: Caesar Evangelista - EKG Data EKG attestation: Yes I reviewed and interpreted this EKG. EKG results narrative: EKG reviewed by Dr. Vazquez as well. EKG shows atrial fibrillation at a rate of 108 bpm with a left anterior fascicular block. QRS duration 118, QT/QTc interval 353/474. No ST elevation noted. No significant changes when compared to an EKG dated from 05/30/17. S.B.A.R. - S.B.A.R. Situation: Demographics, MOA Background: Presenting Complaint, Relevant PMH, Meds, & Allergies Assessment: Vital Signs, Course and respsone to treatment, Exam Concerns, Patient/Family Expectation, Pertinant Lab Results, Outstanding Labs Recommendation: Barrier(s) to disposition, Recommendation based on pending studies, treatments, or consults S.B.A.R. Report Given to: Demond [email or web address] Repor Time: 06:00
--- NOTE | 2017-11-01 04:03 | Emergency Department Note ---
Disposition Clinical Impression: Acute dyspnea Disposition: Still a Patient General Adult HPI - General Chief complaint: ED Shortness of Breath/Dyspnea Stated complaint: SHERRY Time Seen by Provider: 11/01/17 03:39 Source: patient Mode of arrival: ambulatory Limitations: no limitations - History of Present Illness HPI Narrative: ED attending attestation note: I examined this patient and my medical decision-making was reviewed with the emergency medicine nurse practitioner Jorge L Gay. I agree with the documented findings, disposition and treatment plan as described except to the extent set forth below. Briefly: 72-year-old male history of obstructive sleep apnea hypertension diabetes comes in with dyspnea and tachycardia and weakness. Patient will undergo cardiac workup with admission. Patient getting DuoNeb's IV steroids. Providing 30 minutes of critical care service for this patient. Pain Scale: 5 - Related Data Home Medications Medication Instructions Recorded Confirmed Amiodarone [Cordarone] 100 mg PO DAILY 10/04/14 05/30/17 Aspirin Enteric Coated [Aspirin EC] 81 mg PO DAILY 10/04/14 05/30/17 Diltiazem CD (24hr) [Cardizem CD] 180 mg PO DAILY 10/04/14 05/30/17 Omeprazole [PriLOSEC] 20 mg PO DAILY 10/04/14 05/30/17 Atorvastatin [Lipitor] 40 mg PO HS 01/09/16 05/30/17 Cholecalciferol (D-3) [Vitamin D] 1,000 unit PO DAILY 10/27/16 05/30/17 Levothyroxine [Synthroid] 150 mcg PO DAILY 10/27/16 05/30/17 Lisinopril [Zestril] 5 mg PO DAILY 10/27/16 05/30/17 Naproxen [Naprosyn] 250 mg PO BID 10/27/16 05/30/17 Tamsulosin [Flomax] 0.4 mg PO HS 10/27/16 05/30/17 metFORMIN [Glucophage] 500 mg PO BID 10/27/16 05/30/17 Albuterol Sulfate [Proair Hfa] 1 - 2 puff IH Q6H PRN 05/30/17 05/30/17 Ciprofloxacin [Cipro] 500 mg PO BID 05/30/17 05/30/17 Docusate [Colace] 300 mg PO HS 05/30/17 05/30/17 Gabapentin [Neurontin] 100 mg PO TID 05/30/17 05/30/17 Sennosides [Senokot] 8.6 mg PO BID PRN 05/30/17 05/30/17 Warfarin [Coumadin] 5 mg PO QPM 05/30/17 05/30/17 Previous Rx's Medication Instructions Recorded Furosemide [Lasix] 20 mg PO DAILY #14 tablet 06/02/17 Allergies Allergy/AdvReac Type Severity Reaction Status Date / Time duloxetine AdvReac Unknown DIFFICULTY Verified 05/28/17 20:11 SPEAKING gabapentin AdvReac Unknown TREMORS Verified 05/28/17 20:11 Oxycodone AdvReac Unknown Hypotension Verified 05/28/17 20:11 pregabalin AdvReac Unknown TREMORS Verified 05/28/17 20:11 venlafaxine AdvReac Unknown Rash Verified 05/28/17 20:11 Past Medical History - Past Medical History Medical history: Reports: arthritis, atrial fibrillation, diabetes, GERD, hyperlipidemia, hypertension Surgical history: Reports: cholecystectomy, herniorrhaphy, orthopedic, other, sinus surgery Psychiatric history: Reports: no psych history - Social History Smoking Status: Former smoker Smokeless Tobacco Status: No Alcohol use: Reports: none Drug use: Reports: none Physical Exam - General Limitations: no limitations General appearance: alert Course Vital Signs Temperature 98.2 F 11/01/17 03:42 Pulse Rate 87 11/01/17 03:42 Respiratory Rate 11/01/17 03:42 Blood Pressure 121/88 11/01/17 03:42 O2 Sat by Pulse Oximetry 100 11/01/17 03:42 Temperature 98.2 F 11/01/17 03:42 Pulse Rate 87 11/01/17 03:42 Respiratory Rate 11/01/17 03:42 Blood Pressure 121/88 11/01/17 03:42 O2 Sat by Pulse Oximetry 100 11/01/17 03:42 Oxygen Delivery Oxygen Delivery Nasal Cannula
[2017-11-01 04:16] LABS: Basophils % 0.3 %; Eosinophils # 0.2 K/mcL (0.0-0.6); Eosinophils % 2.5 %; Hematocrit 39.7 % (37.5-50.1); Hemoglobin 13.8 g/dL (12.9-16.9); Immature Granulocytes % 0.2 % (0-4); Lymphocytes # 1.7 K/mcL (0.6-4.6); Lymphocytes % 25.7 %; Mean Corpuscular HGB Conc 34.8 g/dL (31.6-35.5); Mean Corpuscular Hemoglobin 31.2 pg (28.0-33.3); Mean Corpuscular Volume 89.6 fL (83.0-100.0); Monocytes # 0.5 K/mcL (0.0-1.3); Monocytes % 8.3 %; Neutrophils # 4.1 K/mcL (1.6-8.9); Platelet Count 138 K/mcL (140-400); Red Blood Count 4.43 M/mcL (4.19-5.50); Red Cell Distribution Width 13.7 % (11.5-14.5)
[2017-11-01 04:20] LABS: INR 2.4; Prothrombin Time 27.4 Seconds (9.4-12.1)
[2017-11-01 04:22] LABS: Activated Partial Thrombo Time 35.7 Seconds (26.0-36.0)
[2017-11-01 04:25] LABS: D-Dimer < 215 ng/mLFEU (0-500)
[2017-11-01 04:36] LABS: Alanine Aminotransferase 20 Units/L (7-52); Albumin 4.4 g/dL (3.5-5.7); Albumin/Globulin Ratio 1.8 (1.1-2.2); Alkaline Phosphatase 64 Units/L (34-104); Aspartate Amino Transferase 23 Units/L (13-39); BUN/Creatinine Ratio 16 (6-26); Bilirubin,Total 0.9 mg/dL (0.3-1.0); Blood Urea Nitrogen 16 mg/dL (8-23); Calcium 9.7 mg/dL (8.6-10.3); Carbon Dioxide 25 mEq/L (23-29); Chloride 106 mEq/L (98-107); Globulin 2.4 g/dL (2.4-3.5); Glucose 168 mg/dL (70-105); Osmolality,Calculated 293 (280-300); Potassium 3.5 mEq/L (3.5-5.1); Sodium 139 mEq/L (136-145); Total Protein 6.8 g/dL (6.4-8.9); eGFR For Non-African Americans > 60 (> 60)
--- NOTE | 2017-11-01 07:05 | Emergency Department Note ---
Disposition Clinical Impression: Acute dyspnea, Chest pain at rest Disposition: Admitted As Inpatient Condition: Fair [facility]Primary Care Provider[facility] - Forms: ED Satisfaction Letter SOB HPI - General Chief Complaint: ED Shortness of Breath/Dyspnea Stated Complaint: SHERRY Time Seen by Provider: 11/01/17 03:39 Source: patient Mode of arrival: ambulatory Limitations: no limitations - History of Present Illness Severity: moderate Improves with: nothing Worsens with: exertion Associated symptoms: Reports: chest pain, abdominal pain. Denies: pain with inspiration, fever, cough, wheezing, sputum production, orthopnea, lower extremity pain, palpitations, hemoptysis, diaphoresis, nausea/vomiting Treatment prior to arrival: none - Related Data Home Medications Medication Instructions Recorded Confirmed Amiodarone [Cordarone] 100 mg PO DAILY 10/04/14 05/30/17 Aspirin Enteric Coated [Aspirin EC] 81 mg PO DAILY 10/04/14 05/30/17 Diltiazem CD (24hr) [Cardizem CD] 180 mg PO DAILY 10/04/14 05/30/17 Omeprazole [PriLOSEC] 20 mg PO DAILY 10/04/14 05/30/17 Atorvastatin [Lipitor] 40 mg PO HS 01/09/16 05/30/17 Cholecalciferol (D-3) [Vitamin D] 1,000 unit PO DAILY 10/27/16 05/30/17 Levothyroxine [Synthroid] 150 mcg PO DAILY 10/27/16 05/30/17 Lisinopril [Zestril] 5 mg PO DAILY 10/27/16 05/30/17 Naproxen [Naprosyn] 250 mg PO BID 10/27/16 05/30/17 Tamsulosin [Flomax] 0.4 mg PO HS 10/27/16 05/30/17 metFORMIN [Glucophage] 500 mg PO BID 10/27/16 05/30/17 Albuterol Sulfate [Proair Hfa] 1 - 2 puff IH Q6H PRN 05/30/17 05/30/17 Ciprofloxacin [Cipro] 500 mg PO BID 05/30/17 05/30/17 Docusate [Colace] 300 mg PO HS 05/30/17 05/30/17 Gabapentin [Neurontin] 100 mg PO TID 05/30/17 05/30/17 Sennosides [Senokot] 8.6 mg PO BID PRN 05/30/17 05/30/17 Warfarin [Coumadin] 5 mg PO QPM 05/30/17 05/30/17 Previous Rx's Medication Instructions Recorded Furosemide [Lasix] 20 mg PO DAILY #14 tablet 06/02/17 Allergies Allergy/AdvReac Type Severity Reaction Status Date / Time duloxetine AdvReac Unknown DIFFICULTY Verified 05/28/17 20:11 SPEAKING gabapentin AdvReac Unknown TREMORS Verified 05/28/17 20:11 Oxycodone AdvReac Unknown Hypotension Verified 05/28/17 20:11 pregabalin AdvReac Unknown TREMORS Verified 05/28/17 20:11 venlafaxine AdvReac Unknown Rash Verified 05/28/17 20:11 Constitutional: Denies: fever, chills, weakness, weight change Eyes: Denies: eye pain, eye discharge, vision change ENT ED: Denies: ear pain, throat pain, dental pain, hearing loss, epistaxis, congestion, dysphagia Cardiovascular: Reports: as per HPI, chest pain, dyspnea on exertion. Denies: palpitations, edema, syncope Respiratory: Reports: as per HPI, dyspnea. Denies: cough, wheezes, hemoptysis, stridor, sputum production Gastrointestinal: Reports: as per HPI, abdominal pain, other (Distention). Denies: nausea, vomiting, diarrhea, constipation, hematemesis, melena, hematochezia Genitourinary: Denies: urgency, dysuria, frequency, hematuria Musculoskeletal: Denies: back pain, neck pain, arthralgia, myalgia Integumentary: Denies: rash, abrasion, lesions Neurological: Denies: headache, weakness, numbness, paresthesias, confusion, abnormal gait, vertigo Psychiatric: Denies: anxiety, depression, suicidal thoughts, homicidal thoughts , auditory hallucinations, visual hallucinations Endocrine: Denies: fatigue Hematological/Lymphatic: Denies: easy bleeding, easy bruising Allergic/Immunologic: Denies: facial swelling, urticaria Past Medical History - Past Medical History Medical history: Reports: arthritis, atrial fibrillation, diabetes, GERD, hyperlipidemia, hypertension Surgical history: Reports: cholecystectomy, herniorrhaphy, orthopedic, other, sinus surgery Psychiatric history: Reports: no psych history - Social History Smoking Status: Former smoker Smokeless Tobacco Status: No Alcohol use: Reports: none Drug use: Reports: none Physical Exam - General Limitations: no limitations General appearance: alert, in no apparent distress Course Vital Signs Temperature 98.2 F 11/01/17 03:42 Pulse Rate 87 11/01/17 03:42 Respiratory Rate 20 11/01/17 03:42 Blood Pressure 121/88 11/01/17 03:42 O2 Sat by Pulse Oximetry 100 11/01/17 03:42 Temperature 98.2 F 11/01/17 03:42 Pulse Rate 93 11/01/17 06:21 Respiratory Rate 17 11/01/17 06:21 Blood Pressure 127/85 11/01/17 06:21 O2 Sat by Pulse Oximetry 100 11/01/17 06:21 Oxygen Delivery Oxygen Delivery Nasal Cannula Shortness of Breath/Dyspnea - MDM Narrative Medical decision making narrative: 72 year old male with history of hypertension, diabetes, a-fib and sleep apnea presents with 10 days shortness of breath and chest uncomfortable. Pt tried C- pap at home without improvement. Pt denied chills and fever or cough. Pt reported negative stress test one year ago. labs shows negative BNP, D-dimer and troponin. EKG: no st-t change. chest CT: has no acute change. stress test Spoke with Hositalist Dr. Greenberg. Pt is accepted for dyspnea, chest pain rule out [facility]. - Lab Data Result diagrams: 11/01/17 03:57 11/01/17 03:57 Lab Results 11/01/17 11/01/17 11/01/17 Range/Units 03:57 03:57 03:57 WBC 6.5 (4.3-11.1) K/mcL RBC 4.43 (4.19-5.50) M/mcL Hgb 13.8 (12.9-16.9) g/dL Hct 39.7 (37.5-50.1) % MCV 89.6 (83.0-100.0) fL MCH 31.2 (28.0-33.3) pg MCHC 34.8 (31.6-35.5) g/dL RDW 13.7 (11.5-14.5) % Plt Count 138 L (140-400) K/mcL MPV 10.0 (9.4-12.4) fL Immature Gran % 0.2 (0-4) % Seg Neutrophils % 63.0 % Lymphocytes % 25.7 % Monocytes % 8.3 % Eosinophils % 2.5 % Basophils % 0.3 % Neutrophils # 4.1 (1.6-8.9) K/mcL Lymphocytes # 1.7 (0.6-4.6) K/mcL Monocytes # 0.5 (0.0-1.3) K/mcL Eosinophils # 0.2 (0.0-0.6) K/mcL Basophils # 0.0 (0.0-0.2) K/mcL PT 27.4 H (9.4-12.1) Seconds INR 2.4 APTT 35.7 (26.0-36.0) Seconds D-Dimer < 215 (0-500) ng/mLFEU Sodium (136-145) mEq/L Potassium (3.5-5.1) mEq/L Chloride (98-107) mEq/L Carbon Dioxide (23-29) mEq/L BUN (8-23) mg/dL Creatinine (0.70-1.30) mg/dL Est GFR ( Amer) (> 60) Est GFR (Non-Af Amer) (> 60) BUN/Creatinine Ratio (6-26) Glucose (70-105) mg/dL Calculated Osmolality (280-300) Lactic Acid (0.5-2.2) mmol/L Calcium (8.6-10.3) mg/dL Total Bilirubin (0.3-1.0) mg/dL AST (13-39) Units/L ALT (7-52) Units/L Alkaline Phosphatase (34-104) Units/L Troponin I < 0.03 (< 0.04) ng/mL B-Natriuretic Peptide (Less than 100) pg/mL Serum Total Protein (6.4-8.9) g/dL Albumin (3.5-5.7) g/dL Globulin (2.4-3.5) g/dL Albumin/Globulin Ratio (1.1-2.2) 11/01/17 11/01/17 11/01/17 Range/Units 03:57 03:57 04:24 WBC (4.3-11.1) K/mcL RBC (4.19-5.50) M/mcL Hgb (12.9-16.9) g/dL Hct (37.5-50.1) % MCV (83.0-100.0) fL MCH (28.0-33.3) pg MCHC (31.6-35.5) g/dL RDW (11.5-14.5) % Plt Count (140-400) K/mcL MPV (9.4-12.4) fL Immature Gran % (0-4) % Seg Neutrophils % % Lymphocytes % % Monocytes % % Eosinophils % % Basophils % % Neutrophils # (1.6-8.9) K/mcL Lymphocytes # (0.6-4.6) K/mcL Monocytes # (0.0-1.3) K/mcL Eosinophils # (0.0-0.6) K/mcL Basophils # (0.0-0.2) K/mcL PT (9.4-12.1) Seconds INR APTT (26.0-36.0) Seconds D-Dimer (0-500) ng/mLFEU Sodium 139 (136-145) mEq/L Potassium 3.5 (3.5-5.1) mEq/L Chloride 106 (98-107) mEq/L Carbon Dioxide 25 (23-29) mEq/L BUN 16 (8-23) mg/dL Creatinine 0.99 (0.70-1.30) mg/dL Est GFR ( Amer) > 60 (> 60) Est GFR (Non-Af Amer) > 60 (> 60) BUN/Creatinine Ratio 16 (6-26) Glucose 168 H (70-105) mg/dL Calculated Osmolality 293 (280-300) Lactic Acid 2.2 (0.5-2.2) mmol/L Calcium 9.7 (8.6-10.3) mg/dL Total Bilirubin 0.9 (0.3-1.0) mg/dL AST 23 (13-39) Units/L ALT 20 (7-52) Units/L Alkaline Phosphatase 64 (34-104) Units/L Troponin I (< 0.04) ng/mL B-Natriuretic Peptide 36 (Less than 100) pg/mL Serum Total Protein 6.8 (6.4-8.9) g/dL Albumin 4.4 (3.5-5.7) g/dL Globulin 2.4 (2.4-3.5) g/dL Albumin/Globulin Ratio 1.8 (1.1-2.2)
--- NOTE | 2017-11-01 08:47 | Internal Med History&Physical ---
Date of Encounter: 11/01/17 Time of Encounter: 08:45 Internal Medicine - H&P: HPI Chief complaint: difficulty breathing Admitted From: Home History of present illness: Mr. Prieto is a 72 year old male past medical history of obstructive sleep apnea, diabetes, hyperlipidemia, hypertension, chronic atrial fibrillation, GERD , diastolic heart failure who came in complaining of shortness on and off for one week. Patient was reportedly seen at [facility] for 2-3 times and was told nothing was wrong. He comes today because he continued to have shortness of breath while he is lying down. He denies any fevers, chills, palpitations, cough. His symptoms are mostly while he is lying down. No exertional shortness of breath he is able to moist troponins and involved in physical activity without any significant shortness of breath. He reportedly has obstructive sleep apnea and as a machine but he is not using it because the machine stops working when he has mask on and he feels suffocated. Complains of some left shoulder discomfort for the past week. Denies any injury to his shoulder. It is constant in nature. Exacerbated with movements. Denies any nausea, vomiting, perspiration. Has mild chronic low back pain as well as lower abdominal discomfort. Patient had a stress test as well as a catheterization in May with essentially normal coronaries. He has diastolic heart failure and takes Lasix. He does not know whether he has gained or lost weight. He does have lower extremity swelling in both legs which she thinks is from diabetes. He had upper endoscopy few months ago very he says some polyps were taken out. According to him his symptoms started after he had this procedure and might have some relation. In ER patient had a Chest x-ray which showed cardiomegaly without congestion. He also had a CT scan which did not show any significant abnormality which would lead to shortness of breath. He received a dose of nebulizer as well as steroids in the ER. His EKG showed atrial fibrillation with IVCD without any change from previous EKG. On interview patient is free of any complaints. Ambulating without any discomfort Past Med Surg Social Fam HX - Past Medical History Medical history: arthritis, atrial fibrillation, diabetes, GERD, hyperlipidemia , hypertension Additional medical history: abdominal aortic aneurysm Psychiatric history: no psych history - Past Surgical History Surgical History: cholecystectomy, herniorrhaphy, orthopedic, other, sinus surgery Additional surgical history: bilateral TKR - left shoulder - left elbow - uvula removed - Social History Smoking Status: Former smoker Smokeless Tobacco Status: No Alcohol use: none Drug use: none - Family History Mother Living Status: Hx Family Cancer: Yes Internal Medicine - H&P: Meds Atorvastatin [Lipitor] 40 mg PO HS 01/09/16 [History] Cholecalciferol (D-3) [Vitamin D] 1,000 unit PO DAILY 10/27/16 [History] Levothyroxine [Synthroid] 150 mcg PO DAILY 10/27/16 [History] Tamsulosin [Flomax] 0.4 mg PO HS 10/27/16 [History] metFORMIN [Glucophage] 500 mg PO DAILY 10/27/16 [History] Albuterol Sulfate [Proair Hfa] 2 puff IH Q6H PRN 05/30/17 [History] Docusate [Colace] 300 mg PO HS 05/30/17 [History] Sennosides [Senokot] 8.6 mg PO BID PRN 05/30/17 [History] Warfarin [Coumadin] 7.5 mg PO TH 05/30/17 [History] Furosemide [Lasix] 20 mg PO DAILY #14 tablet 06/02/17 [Rx] Diltiazem HCl [Diltiazem 24Hr Cd] 180 mg PO DAILY 11/01/17 [History] L. Acidophilus/L.bulgaricus [Lactobacillus Tablet] 1 tab PO DAILY 11/01/17 [ History] Losartan [Cozaar] 12.5 mg PO DAILY 11/01/17 [History] Omeprazole [PriLOSEC] 20 mg PO DAILY 11/01/17 [History] Potassium Chloride [Klor-Con 10] 10 meq PO DAILY 11/01/17 [History] Warfarin [Coumadin] 5 mg PO SUMOTUWEFRSA 11/01/17 [History] 3 Allergy/AdvReac Type Severity Reaction Status Date / Time duloxetine AdvReac Unknown DIFFICULTY Verified 05/28/17 20:11 SPEAKING gabapentin AdvReac Unknown TREMORS Verified 05/28/17 20:11 Oxycodone AdvReac Unknown Hypotension Verified 05/28/17 20:11 pregabalin AdvReac Unknown TREMORS Verified 05/28/17 20:11 venlafaxine AdvReac Unknown Rash Verified 05/28/17 20:11 All Systems PM: A 10-system review of systems was performed and is negative for pertinent findings except as documented above in the HPI. - Constitutional Vitals: Temp Pulse Resp BP Pulse Ox 98.2 F 107 14 126/90 93 11/01/17 08:39 11/01/17 08:39 11/01/17 08:39 11/01/17 08:39 11/01/17 08:39 General appearance: Present: A&O X 3, no acute distress Exam: Constitutional: Vitals as noted. Conversant. No Apparent Distress. Well grommed. Morbidly obese. No obvious deformities. Eyes exam: Sclera white, conjunctiva clear, no lid lag, PEARLA. ENT exam: Grossly normal hearing. Nasophargeal and Oropharyngeal exam unremarkable. Moist mucus membranes. No JVD, carotid bruit, no cervical lymphadenopathy. no thyromegaly or mass. Respiratory exam: Clear to auscultation bilaterally. No accessory muscle use, rales, rhonchi or wheezes Cardiovascular exam: RRR, +S1, +S2. no murmur, gallop, rubs. No chest wall tenderness GI/Abdominal exam: Soft, Non-tender, Non-distended, normal bowel sounds, soft, no peritoneal signs. no orgenomegaly or mass appreciated. no hernia. Musculoskeletal exam: full ROM, no atrophy or deformity noted. 2+ pedal edema or no cyanosis, warm, pulses palpable and symmetrical in UE/LE. no calf tenderness. Neurological exam: AO X3, CN II-XII grossly intact, grossly normal motor and sensory exam. Normal muscle tone and reflexes. no focal deficits. no pronater drift, facial droop, speech deficit. Skin exam: No skin rash, lesions or ulcers noted. no purpura or ecchymosis. Pych: Good insight and judgment. Intact memory. AOx3. Mood and affect. Internal Med - H&P Results - Labs CBC & Chem 7: 11/01/17 03:57 11/01/17 03:57 - EKG Data Prior EKG available for review: yes When compared to previous EKG: there is no significant change Interpretation IM: other (Atrial fibrillation with IVCD) - Assessment and plan (1) Shortness of breath Current Visit: Yes Status: Acute Assessment and plan: - CT without evidence of congestion or emphysema. Patient without cough and exam unremarkable except significant obesity - Unlikely to be related to COPD. Does not appear to be in decompensated heart failure, does have diastolic heart failure. - EKG without any changes. First troponin negative. Trend troponin. Symptoms does not appear to be cardiac in origin given clean coronaries and without congestion on CAT scan. Clean coronaries in May. - Unclear etiology. Possible that it is related to upper airway obstruction. Possible related to him not using his CPAP machine. We call pulmonology consult for further evaluation. - IV Lasix given lower extremity edema which may help with shortness of breath. - We will use CPAP for his SRIKANTH. - Continue duo nebs prn (2) Diastolic CHF Current Visit: Yes Status: Acute Assessment and plan: As above Qualifiers: Qualified Code(s): I50.32 - Chronic diastolic (congestive) heart failure (3) Atrial fibrillation Current Visit: No Status: Chronic Assessment and plan: - Continue home warfarin and diltiazem Qualifiers: Atrial fibrillation type: chronic Qualified Code(s): I48.2 - Chronic atrial fibrillation (4) Diabetes Current Visit: No Status: Chronic Assessment and plan: - hold home metformin - accuchecks and sliding scale insulin Qualifiers: Qualified Code(s): E11.9 - Type 2 diabetes mellitus without complications (5) Hyperlipidemia Current Visit: No Status: Chronic Assessment and plan: -Continue home atorvastatin Qualifiers: Qualified Code(s): E78.5 - Hyperlipidemia, unspecified (6) Hypertension Current Visit: No Status: Chronic Assessment and plan: -Continue home antihypertensives Qualifiers: Qualified Code(s): I10 - Essential (primary) hypertension - Time Spent With Patient Total time spent is greater than 50% in coordination of care (as documented) at patient's floor/unit and/or counseling patient:
[2017-11-01] MEDS ORDERED: Ipratropium/Albuterol Neb 3 ML IH PRN (09:09)
[2017-11-01] MEDS: Diltiazem CD (24hr) 180 MG CAPSULE PO SCH (09:29)
[2017-11-01] MEDS ORDERED: *HR* Metoprolol 5 MG/5 ML VIAL IVP ONE ×3 (11:09→14:57)
[2017-11-01] MEDS ORDERED: Sennosides 8.6 MG TABLET PO PRN (12:29)
[2017-11-01] MEDS: Insulin LISPRO 300 UNITS/3 ML VIAL SQ SCH ×2 (13:21→17:47)
[2017-11-01] MEDS: Furosemide 20 MG/2 ML VIAL IVP SCH (13:21)
[2017-11-01] MEDS ORDERED: *HR* Metformin 500 MG TABLET PO SCH (17:00)
[2017-11-01] MEDS ORDERED: *HR* Warfarin 5 MG TABLET PO SCH ×2 (18:00)
--- NOTE | 2017-11-01 18:30 | Electrocardiograph Report ---
[facility] [employer] Test Date: 2017-11-01 Pat Name: Vin Prieto Department: EXAM2 Room: 3B24 Gender: M Certified Technician: : 1945 Requested By: Jorge L Gay Order Number: [id number] Reading MD: Joi Santacruz Measurements Intervals [place] Rate: 108 P: [place]: QRS: -65 QRSD: 118 T: 99 QT: 353 QTc: 474 Interpretive Statements Atrial fibrillation Left anterior fascicular block Consider anterior infarct Nonspecific T abnormalities, lateral leads Electronically Signed On 11-01-2017 18:28:48 EDT by Joi Santacruz
--- NOTE | 2017-11-01 18:34 | Pulmonology Consult Note ---
Date of Encounter: 11/01/17 Time of Encounter: 15:00 Assessment and Plan (1) Acute respiratory failure with hypoxia Current Visit: Yes Status: Acute Patient presented with acute respiratory failure with hypoxia most likely etiology is acute on chronic diastolic heart failure complicated due to atrial fibrillation with RVR the rapid ventricular response will do worsen the diastolic dysfunction as patient person with orthopnea and before the hospital admission with paroxysmal nocturnal dyspnea ,paroxysmal nocturnal dyspnea is more in favor of heart failure rather than a pulmonary etiology. We will recommend to the primary team to increase the dose of diuresis as tolerated by hemodynamics and kidney function. (2) Atrial fibrillation with RVR Current Visit: Yes Status: Acute Patient has atrial fibrillation with RVR will need good rate control for to ensure adequate diastolic filling time and also help in the improvement of diastolic dysfunction. (3) Diastolic heart failure Current Visit: Yes Status: Acute Even though the BNP is normal can be falsely low in morbidly obese people with the clinical presentation of A. fib with RVR with a background of diastolic dysfunction and with PND and orthopnea will recommend diuresing him to higher dose than the normal home dose Lasix and see how he responds. Qualifiers: Heart failure chronicity: acute on chronic Qualified Code(s): I50.33 - Acute on chronic diastolic (congestive) heart failure (4) SRIKANTH on CPAP Current Visit: Yes Status: Acute patient should be on CPAP machine will get records from [place] to find the right pressure on discharge to coordinate with the [place] to get a new CPAP machine for him. (5) Suspected chronic obstructive pulmonary disease based on initial evaluation Current Visit: Yes Status: Acute CT imaging shows evidence of small airway disease patient had PFTs at the [facility] will get the records I suspect patient has background COPD but the current presentation does not look like COPD exacerbation are it can be a presentation of late onset asthma will review the outpatient records from the [place] for that the current presentation does not fit picture of COPD exacerbation. 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 Patient not on any regular bronchodilators, patient obstructive sleep apnea apnea has been treated with CPAP not sure of the pressure [facility], presenting to the hospital with progressive shortness of breath mostly orthopnea and with some pedal edema patient on home dose Lasix suddenly woke up short of breath was very concerned so he came to the hospital and found to be atrial fibrillation with RVR CT chest did not show any evidence of pneumonia or any pleural effusion which showed some evidence of air-trapping suggestive of small airway disease pulmonary was consult and for this acute hypoxic respiratory failure and shortness of breath. Patient denies any chest pain, chest tightness denies any cough or sputum production denies any recent symptoms contacts has some on and off palpitation but denies syncope has on and off pedal edema but appear lady was gotten worse for few weeks. Patient denies any neuro symptoms or any active GERD symptoms. Past Med Surg Social Fam HX - Past Medical History Medical history: arthritis, atrial fibrillation, diabetes, GERD, hyperlipidemia , hypertension Additional medical history: abdominal aortic aneurysm Psychiatric history: no psych history - Past Surgical History Surgical History: cholecystectomy, herniorrhaphy, orthopedic, other, sinus surgery Additional surgical history: bilateral TKR - left shoulder - left elbow - uvula removed - Social History Smoking Status: Former smoker Smokeless Tobacco Status: No Alcohol use: none Drug use: none - Family History Mother Living Status: Hx Family Cancer: Yes Medications and Allergies Atorvastatin [Lipitor] 40 mg PO HS 01/09/16 [History] Cholecalciferol (D-3) [Vitamin D] 1,000 unit PO DAILY 10/27/16 [History] Levothyroxine [Synthroid] 150 mcg PO DAILY 10/27/16 [History] Tamsulosin [Flomax] 0.4 mg PO HS 10/27/16 [History] metFORMIN [Glucophage] 500 mg PO DAILY 10/27/16 [History] Albuterol Sulfate [Proair Hfa] 2 puff IH Q6H PRN 05/30/17 [History] Docusate [Colace] 300 mg PO HS 05/30/17 [History] Sennosides [Senokot] 8.6 mg PO BID PRN 05/30/17 [History] Warfarin [Coumadin] 7.5 mg PO TH 05/30/17 [History] Furosemide [Lasix] 20 mg PO DAILY #14 tablet 06/02/17 [Rx] Diltiazem HCl [Diltiazem 24Hr Cd] 180 mg PO DAILY 11/01/17 [History] L. Acidophilus/L.bulgaricus [Lactobacillus Tablet] 1 tab PO DAILY 11/01/17 [ History] Losartan [Cozaar] 12.5 mg PO DAILY 11/01/17 [History] Omeprazole [PriLOSEC] 20 mg PO DAILY 11/01/17 [History] Potassium Chloride [Klor-Con 10] 10 meq PO DAILY 11/01/17 [History] Warfarin [Coumadin] 5 mg PO SUMOTUWEFRSA 11/01/17 [History] 3 Allergy/AdvReac Type Severity Reaction Status Date / Time duloxetine AdvReac Unknown DIFFICULTY Verified 05/28/17 20:11 SPEAKING gabapentin AdvReac Unknown TREMORS Verified 05/28/17 20:11 Oxycodone AdvReac Unknown Hypotension Verified 05/28/17 20:11 pregabalin AdvReac Unknown TREMORS Verified 05/28/17 20:11 venlafaxine AdvReac Unknown Rash Verified 05/28/17 20:11 All Systems: The remainder of the systems were reviewed and are negative. Physical Examination Vital Signs: Vital Signs, Last 4 Hours Temp Pulse Resp BP Pulse Ox 11/01/17 15:28 98.2 F 112 16 110/73 98 Auscultation: bilateral: diminished breath sounds Gastrointestinal: other (Obese distended abdomen) Extremities: edema Results - Laboratory Findings CBC and BMP: 11/01/17 03:57 11/01/17 03:57 PT/INR, D-dimer PT 27.4 Seconds (9.4-12.1) H 11/01/17 03:57 D-Dimer < 215 ng/mLFEU (0-500) 11/01/17 03:57 Abnormal lab findings: Abnormal lab results Plt Count 138 K/mcL (140-400) L 11/01/17 03:57 PT 27.4 Seconds (9.4-12.1) H 11/01/17 03:57 Glucose 168 mg/dL (70-105) H 11/01/17 03:57 POC Glucose 347 mg/dL (70-99) H 11/01/17 15:46 - Clinical Findings Intake & Output: Intake & Output 11/01/17 11/01/17 11/01/17 07:59 15:59 23:59 Intake Total 360 / 360 Balance 360 / 360 Consult Discharge Plan - Plan [facility]errals: [facility] [Primary Care Provider[facility] -
[2017-11-01] MEDS: Insulin DETEMIR 100 UNIT/ML X5UNITS SQ SCH (20:38)
[2017-11-02 06:17] LABS: BUN/Creatinine Ratio 22 (6-26); Blood Urea Nitrogen 21 mg/dL (8-23); Calcium 9.8 mg/dL (8.6-10.3); Carbon Dioxide 23 mEq/L (23-29); Chloride 108 mEq/L (98-107); Glucose 135 mg/dL (70-105); Osmolality,Calculated 295 (280-300); Potassium 3.7 mEq/L (3.5-5.1); Sodium 140 mEq/L (136-145); eGFR For Non-African Americans > 60 (> 60)
[2017-11-02] MEDS: Insulin LISPRO 300 UNITS/3 ML VIAL SQ SCH ×3 (08:03→16:57)
[2017-11-02] MEDS ORDERED: Diltiazem CD (24hr) 180 MG CAPSULE PO SCH (09:00)
[2017-11-02] MEDS: Lactobacillus 1 EACH CAP.SPRINK PO SCH (09:27)
[2017-11-02] MEDS: Diltiazem CD (24hr) 180 MG CAPSULE PO SCH (09:27)
[2017-11-02] MEDS: Cholecalciferol (D-3) 1,000 UNIT TABLET PO SCH (09:32)
[2017-11-02] MEDS: Furosemide 20 MG/2 ML VIAL IVP SCH (10:00)
--- NOTE | 2017-11-02 10:09 | Internal Med Progress Note ---
Hospitalist Progress Note - Encounter Date of Encounter: 11/02/17 Time of Encounter: 10:06 - Exam Vitals: Temp Pulse Resp BP Pulse Ox 97.6 F 84 20 101/67 96 11/02/17 07:36 11/02/17 07:36 11/02/17 07:36 11/02/17 07:36 11/02/17 07:36 Exam: Constitutional: Vitals as noted. Conversant. No Apparent Distress. Well grommed. Morbidly obese. No obvious deformities. Eyes exam: Sclera white, conjunctiva clear, no lid lag, PEARLA. ENT exam: Grossly normal hearing. Nasophargeal and Oropharyngeal exam unremarkable. Moist mucus membranes. No JVD, carotid bruit, no cervical lymphadenopathy. no thyromegaly or mass. Respiratory exam: Clear to auscultation bilaterally. No accessory muscle use, rales, rhonchi or wheezes Cardiovascular exam: RRR, +S1, +S2. no murmur, gallop, rubs. No chest wall tenderness GI/Abdominal exam: Soft, Non-tender, Non-distended, normal bowel sounds, soft, no peritoneal signs. no orgenomegaly or mass appreciated. no hernia. Musculoskeletal exam: full ROM, no atrophy or deformity noted. 2+ pedal edema or no cyanosis, warm, pulses palpable and symmetrical in UE/LE. no calf tenderness. Neurological exam: AO X3, CN II-XII grossly intact, grossly normal motor and sensory exam. Normal muscle tone and reflexes. no focal deficits. no pronater drift, facial droop, speech deficit. Skin exam: No skin rash, lesions or ulcers noted. no purpura or ecchymosis. Pych: Good insight and judgment. Intact memory. AOx3. Mood and affect. - Assessment and Plan (1) Diabetes Current Visit: No Status: Chronic Assessment and Plan: - hold home metformin - accuchecks and sliding scale insulin (2) Hypertension Current Visit: No Status: Chronic Assessment and Plan: -Currently patient is hypotensive we will hold losartan for now and continue to diuresis we will monitor creatinine closely (3) Atrial fibrillation Current Visit: No Status: Chronic Assessment and Plan: - Currently he is in A. fib with rate control 80s to 90s. Continue with warfarin and Cardizem continuous cardiac monitoring (4) Hyperlipidemia Current Visit: No Status: Chronic Assessment and Plan: -Continue home atorvastatin (5) Diastolic CHF Current Visit: Yes Status: Acute Assessment and Plan: We will diurese the patient with 20 of IV Lasix monitor intake and output and daily weight Fluid restriction He denies need to maintain SPO2 greater than 90% Will check cardiac echo Previous echo obtained EF 50% mild concentric left ventricular hypertrophy indeterminant diastolic function atypical septal motion consistent with bundle branch block right ventricle was not visualized no evidence of pulmonary hypertension no significant valvular disease. (6) Shortness of breath Current Visit: Yes Status: Acute Assessment and Plan: - CT without evidence of congestion or emphysema. Patient without cough and exam unremarkable except significant obesity - Unlikely to be related to COPD. Does have diastolic heart failure.-Suspect possible A. fib RVR which may be triggering CHF patient had not taken medication and was tachycardic on presentation. Currently rate is controlled breathing seems to have improved - EKG without any changes. First troponin negative. Trend troponin. Symptoms does not appear to be cardiac in origin given clean coronaries and without congestion on CAT scan. Clean coronaries in May. - Unclear etiology. Possible that it is related to upper airway obstruction. Pulmonary has been consulted and appreciate recommendations - IV Lasix given lower extremity edema which may help with shortness of breath. -Patient has not been compliant with CPAP We will use CPAP for his SRIKANTH. - Continue duo nebs prn - Time Spent with Patient Total time spent is greater than 50% in coordination of care (as documented) at patient's floor/unit and/or counseling patient: Internal Medicine: Result - Labs CBC & Chem 7: 11/01/17 03:57 11/02/17 05:28 Labs: BMP 11/02/17 05:28 Sodium 140 Potassium 3.7 Chloride 108 H Carbon Dioxide 23 BUN 21 Creatinine 0.95 Glucose 135 H Calcium 9.8 - ABG Interpretation ABG results: PT/INR, D-dimer PT 27.4 Seconds (9.4-12.1) H 11/01/17 03:57 D-Dimer < 215 ng/mLFEU (0-500) 11/01/17 03:57 Consult Discharge Plan - Plan [facility]errals: [facility] [Primary Care Provider] - (1) Diabetes Qualifiers: Diabetes mellitus type: type 2 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
--- NOTE | 2017-11-02 16:47 | Pulmonology Progress Note ---
Date of Encounter: 11/02/17 Time of Encounter: 08:00 Assessment and Plan (1) Acute respiratory failure with hypoxia Current Visit: Yes Status: Acute After diuresis patient is off oxygen most likely the acute respiratory failure is due to atrial fibrillation with RVR resulting in worsening diastolic dysfunction resulted in some pulmonary edema. (2) Atrial fibrillation with RVR Current Visit: Yes Status: Acute Patient presented with atrial fibrillation with RVR rate control according to primary team is most likely cause for patient presentation (3) Diastolic heart failure Current Visit: Yes Status: Acute Caused by rapid ventricular rate causing worsening diastolic dysfunction management according to primary team. Patient improving with current management Qualifiers: Heart failure chronicity: acute on chronic Qualified Code(s): I50.33 - Acute on chronic diastolic (congestive) heart failure (4) SRIKANTH on CPAP Current Visit: Yes Status: Acute We will get the records from [place] and see what pressure is he on. On discharge patient should get his machine from [place] please coordinate with case management. (5) Suspected chronic obstructive pulmonary disease based on initial evaluation Current Visit: Yes Status: Acute Waiting for [place] records to continue bronchodilators if required. Subjective Principal diagnosis: acute on chronic diastolic heart failure Interval history: Patient is doing a lot better patient is off oxygen today denies any chest pain or chest tightness not much shortness of breath cannot assses about the severity of orthopnea or PND as patient slept in the recliner today rather than on his bed. Objective PUL Vital signs: Last Vital Signs Temp 98.2 F 11/02/17 16:36 Pulse 81 11/02/17 16:36 Resp 20 11/02/17 16:36 BP 101/71 11/02/17 16:36 Pulse Ox 96 11/02/17 16:36 Auscultation: bilateral: clear Extremities: edema Results - Laboratory Findings CBC and BMP: 11/01/17 03:57 11/02/17 05:28 PT/INR, D-dimer PT 27.4 Seconds (9.4-12.1) H 11/01/17 03:57 D-Dimer < 215 ng/mLFEU (0-500) 11/01/17 03:57 Abnormal lab findings: Abnormal lab results Plt Count 138 K/mcL (140-400) L 11/01/17 03:57 PT 27.4 Seconds (9.4-12.1) H 11/01/17 03:57 Chloride 108 mEq/L (98-107) H 11/02/17 05:28 Glucose 135 mg/dL (70-105) H 11/02/17 05:28 POC Glucose 246 mg/dL (70-99) H 11/01/17 21:19 - Clinical Findings Intake & Output: Intake & Output 11/02/17 11/02/17 11/02/17 07:59 15:59 23:59 Intake Total 600 / 600 Balance 600 / 600 Weight 131.088 kg Consult Discharge Plan - Plan Referrals: [facility] [Primary Care Provider] -
[2017-11-02] MEDS ORDERED: Warfarin perPT PO PRN (18:00)
[2017-11-02] MEDS ORDERED: *HR* Warfarin 5 MG TABLET PO ONE (18:00)
[2017-11-02] MEDS: Insulin DETEMIR 100 UNIT/ML X5UNITS SQ SCH (21:22)
[2017-11-03 05:36] LABS: Basophils % 0.3 %; Eosinophils # 0.1 K/mcL (0.0-0.6); Eosinophils % 1.4 %; Hematocrit 38.4 % (37.5-50.1); Hemoglobin 12.9 g/dL (12.9-16.9); Immature Granulocytes % 0.3 % (0-4); Lymphocytes # 1.7 K/mcL (0.6-4.6); Lymphocytes % 25.2 %; Mean Corpuscular HGB Conc 33.6 g/dL (31.6-35.5); Mean Corpuscular Volume 92.3 fL (83.0-100.0); Mean Platelet Volume 10.3 fL (9.4-12.4); Monocytes # 0.5 K/mcL (0.0-1.3); Monocytes % 7.7 %; Neutrophils # 4.3 K/mcL (1.6-8.9); Platelet Count 126 K/mcL (140-400); Red Blood Count 4.16 M/mcL (4.19-5.50); Red Cell Distribution Width 14.1 % (11.5-14.5); Segmented Neutrophils % 65.1 %
[2017-11-03 05:39] LABS: INR 2.4
[2017-11-03 05:45] LABS: BUN/Creatinine Ratio 26 (6-26); Blood Urea Nitrogen 25 mg/dL (8-23); Calcium 9.1 mg/dL (8.6-10.3); Carbon Dioxide 25 mEq/L (23-29); Chloride 108 mEq/L (98-107); Glucose 130 mg/dL (70-105); Osmolality,Calculated 294 (280-300); Potassium 3.7 mEq/L (3.5-5.1); Sodium 139 mEq/L (136-145); eGFR For Non-African Americans > 60 (> 60)
[2017-11-03 07:38] VITALS: BP 128/81
[2017-11-03] MEDS: Insulin LISPRO 300 UNITS/3 ML VIAL SQ SCH (08:09)
[2017-11-03] MEDS: Diltiazem CD (24hr) 180 MG CAPSULE PO SCH (08:10)
[2017-11-03] MEDS: Lactobacillus 1 EACH CAP.SPRINK PO SCH (08:10)
[2017-11-03] MEDS: Furosemide 20 MG/2 ML VIAL IVP SCH (08:10)
[2017-11-03] MEDS: Cholecalciferol (D-3) 1,000 UNIT TABLET PO SCH (08:11)
--- NOTE | 2017-11-03 09:40 | Pulmonology Progress Note ---
Date of Encounter: 11/03/17 Time of Encounter: 09:00 Assessment and Plan (1) Acute respiratory failure with hypoxia Current Visit: Yes Status: Acute After diuresis patient is off oxygen most likely the acute respiratory failure is due to atrial fibrillation with RVR resulting in worsening diastolic dysfunction resulted in some pulmonary edema. Now he is off O2 just do a 6 minute walk before he goes home. (2) Atrial fibrillation with RVR Current Visit: Yes Status: Acute Patient presented with atrial fibrillation with RVR rate control according to primary team is most likely cause for patient presentation (3) Diastolic heart failure Current Visit: Yes Status: Acute Caused by rapid ventricular rate causing worsening diastolic dysfunction management according to primary team. Patient improving with current management. Will leave to primary team about outpatient diuretic regimen Qualifiers: Heart failure chronicity: acute on chronic Qualified Code(s): I50.33 - Acute on chronic diastolic (congestive) heart failure (4) SRIKANTH on CPAP Current Visit: Yes Status: Acute We will get the records from [place] and see what pressure is he on. On discharge [facility] please coordinate with case management. [facility] records patient should be on BIPAP gave the [facility] contact to case packer to arrange for a new machine. (5) Suspected chronic obstructive pulmonary disease based on initial evaluation Current Visit: Yes Status: Acute [facility]ed [facility] records PFT Normal in Feb . Albuterol prn might have late onset asthma suggest outpatient eval. Will sign off Subjective Principal diagnosis: acute on chronic diastolic heart failure Interval history: Patient is doing a lot better patient is off oxygen today denies any chest pain or chest tightness not much shortness of breath cannot assses about the severity of orthopnea or PND as patient slept in the recliner today rather than on his bed. 11/03 Patient is sitting in his chair saying he is back to baseline off oxygen no complaints Objective PUL Vital signs: Last Vital Signs Temp 97.7 F 11/03/17 07:37 Pulse 76 11/03/17 07:37 Resp 20 11/03/17 07:37 BP 128/81 11/03/17 07:37 Pulse Ox 97 11/03/17 07:37 Auscultation: bilateral: clear Extremities: edema Results - Laboratory Findings CBC and BMP: 11/03/17 04:33 11/03/17 04:33 PT/INR, D-dimer PT 27.0 Seconds (9.4-12.1) H 11/03/17 04:33 D-Dimer < 215 ng/mLFEU (0-500) 11/01/17 03:57 Abnormal lab findings: Abnormal lab results RBC 4.16 M/mcL (4.19-5.50) L 11/03/17 04:33 Plt Count 126 K/mcL (140-400) L 11/03/17 04:33 PT 27.0 Seconds (9.4-12.1) H 11/03/17 04:33 Chloride 108 mEq/L (98-107) H 11/03/17 04:33 BUN 25 mg/dL (8-23) H 11/03/17 04:33 Glucose 130 mg/dL (70-105) H 11/03/17 04:33 POC Glucose 160 mg/dL (70-99) H 11/02/17 16:36 - Clinical Findings Intake & Output: Intake & Output 11/02/17 11/03/17 11/03/17 23:59 07:59 15:59 Output Total 500 / 500 900 / 900 Balance -500 / -500 -900 / -900 Consult Discharge Plan - Plan Referrals: [facility] [Primary Care Provider] -
--- NOTE | 2017-11-03 11:02 | Discharge Summary ---
- NOTES TO OUTPATIENT PROVIDER Notes to Outpatient Provider: Patient will need follow up with [place] for Bipap. monitor labs as outpatient - increase lasix to 40mg - advised to monitor weight Orders not resulted at time of discharge: Pending orders 11/04/17 04:00 CBC [Complete Blood Count] [HEME] AM 0400 Chem 7 [Basic Metabolic Panel] AM 0400 INR/PT [Prothrombin Time INR] [COAG] AM 0400 11/05/17 04:00 CBC [Complete Blood Count] [HEME] AM 0400 Chem 7 [Basic Metabolic Panel] AM 0400 INR/PT [Prothrombin Time INR] [COAG] AM 0400 11/06/17 04:00 INR/PT [Prothrombin Time INR] [COAG] AM 0400 Date of Encounter: 11/03/17 Time of Encounter: 10:57 - Discharge Diagnosis (1) Diabetes Priority: Secondary Status: Chronic Qualifiers: Diabetes mellitus type: type 2 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 Diabetes mellitus complication status: without complication Qualified Code(s): E11.9 - Type 2 diabetes mellitus without complications (2) Hypertension Priority: Secondary Status: Chronic Qualifiers: Hypertension type: unspecified Qualified Code(s): I10 - Essential (primary ) hypertension (3) Atrial fibrillation Priority: Secondary Status: Chronic Qualifiers: Atrial fibrillation type: chronic Qualified Code(s): I48.2 - Chronic atrial fibrillation (4) Hyperlipidemia Priority: Secondary Status: Chronic Qualifiers: Hyperlipidemia type: unspecified Qualified Code(s): E78.5 - Hyperlipidemia , unspecified (5) Diastolic CHF Priority: Secondary Status: Acute Qualifiers: Heart failure chronicity: unspecified Qualified Code(s): I50.30 - Unspecified diastolic (congestive) heart failure (6) Shortness of breath Priority: Primary Status: Acute Hospital course: Mr. Prieto is a 72 year old male past medical history of obstructive sleep apnea, diabetes, hyperlipidemia, hypertension, chronic atrial fibrillation, GERD , diastolic heart failure who came in complaining of shortness on and off for one week. Patient was reportedly seen at [place] for 2-3 times and was told nothing was wrong. He continued to have shortness of breath while he is lying down and presented to [facility] for evaluation. Chest x-ray which showed cardiomegaly without congestion. He also had a CT scan which did not show any significant abnormality which would lead to shortness of breath.Lab work was unremarkable- he did have episode of Afib RVR during admission, however he had not taken any of his medication. His home medications were resumed and he was given IV lasix- His resp state improved and has been able to ambulate without SOB. Patient also admits that he has not been using his CPAP machine, pulmonary was consulted who felt his resp failure likely rt to afib and worsening diastolic dysfunction. Six min walk test completed and patient did not qualify for O2- We will increase home lasix anvised patient to use CPAP and follow up with pulmonary and PCP as outpatient. Also [facility]. He is to monitor weight and fluid intake Patient verbalized understanding He is hemodynamically stable and ready for discharge Discharge discussed with: patient - Time Spent with Patient Total time spent providing and/or coordinating discharge services: - Discharge Medications Prescriptions: Furosemide [Lasix] 40 mg IVP DAILY #30 vial Home Medications: Atorvastatin [Lipitor] 40 mg PO HS 01/09/16 [History] Cholecalciferol (D-3) [Vitamin D] 1,000 unit PO DAILY 10/27/16 [History] Levothyroxine [Synthroid] 150 mcg PO DAILY 10/27/16 [History] Tamsulosin [Flomax] 0.4 mg PO HS 10/27/16 [History] metFORMIN [Glucophage] 500 mg PO DAILY 10/27/16 [History] Albuterol Sulfate [Proair Hfa] 2 puff IH Q6H PRN 05/30/17 [History] Docusate [Colace] 300 mg PO HS 05/30/17 [History] Sennosides [Senokot] 8.6 mg PO BID PRN 05/30/17 [History] Warfarin [Coumadin] 7.5 mg PO TH 05/30/17 [History] Furosemide [Lasix] 20 mg PO DAILY #14 tablet 06/02/17 [Rx] Diltiazem HCl [Diltiazem 24Hr Cd] 180 mg PO DAILY 11/01/17 [History] L. Acidophilus/L.bulgaricus [Lactobacillus Tablet] 1 tab PO DAILY 11/01/17 [ History] Losartan [Cozaar] 12.5 mg PO DAILY 11/01/17 [History] Omeprazole [PriLOSEC] 20 mg PO DAILY 11/01/17 [History] Potassium Chloride [Klor-Con 10] 10 meq PO DAILY 11/01/17 [History] Warfarin [Coumadin] 5 mg PO SUMOTUWEFRSA 11/01/17 [History] Furosemide [Lasix] 40 mg IVP DAILY #30 vial 11/03/17 [Rx] Allergies/Adverse Reactions: 3 Allergy/AdvReac Type Severity Reaction Status Date / Time duloxetine AdvReac Unknown DIFFICULTY Verified 05/28/17 20:11 SPEAKING gabapentin AdvReac Unknown TREMORS Verified 05/28/17 20:11 Oxycodone AdvReac Unknown Hypotension Verified 05/28/17 20:11 pregabalin AdvReac Unknown TREMORS Verified 05/28/17 20:11 venlafaxine AdvReac Unknown Rash Verified 05/28/17 20:11 Date of admission: 11/01/17 07:05 [facility] care physician: [facility] Consults: 11/01/17 18:37 Consult to Pulmonology [CONS] Routine Consulting Provider: [facility] Reason for Consult: SOB Call Completed: Yes Discharging clinician: Anahy Allison Anticipated date of discharge: 11/03/17 - Constitutional Vitals: Temp Pulse Resp BP Pulse Ox 97.7 F 76 20 128/81 97 11/03/17 07:37 11/03/17 07:37 11/03/17 07:37 11/03/17 07:37 11/03/17 07:37 General appearance: Present: A&O X 3, no acute distress Exam: see above - Head Head exam: Present: atraumatic, normocephalic - Eye Eye exam: Present: PERRL, conjuntiva pink, sclera anicteric Pupils: Present: PERRL - Neck Neck exam general surgery: Present: supple, trachea midline. Absent: lymphadenopathy - Respiratory Respiratory exam: Present: CTAB. Absent: accessory muscle use, rales, rhonchi, wheezes - Cardiovascular Cardiovascular exam: Present: RRR, +S1, +S2. Absent: diastolic murmur, gallop, rubs, systolic murmur - GI/Abdominal GI/Abdominal exam: Present: normal bowel sounds, soft, no peritoneal signs. Absent: distended, tenderness - Extremities Exam Extremities exam: Present: warm, radial pulses palpable and symmetrical. Absent : calf tenderness, cyanotic, pedal edema - Neurological Exam Neurological exam: Present: CN II-XII intact, oriented X3, no focal deficits. Absent: pronater drift, facial droop, speech deficit - Skin Skin exam: Present: dry, intact - Patient Status Disposition: Home, Self-Care Condition: Fair Functional capacity at discharge: independent ambulation Overall status at discharge: patient is back to baseline - Discharge Instructions Instructions: Atrial Fibrillation (DC), Chest Pain (DC), Acute Respiratory Distress Syndrome (DC) Follow [facility] With: [facility] [Primary Care Provider] - 11/11/17 10:45 am - Diet and Activity Activity: increase activity as tolerated Diet: low salt diet
--- NOTE | 2017-11-03 17:41 | Electrocardiograph Report ---
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
[2017-11-03] MEDS ORDERED: *HR* Warfarin 5 MG TABLET PO ONE (18:00)
[2017-11-04] MEDS ORDERED: *HR* Warfarin 7.5 MG TABLET PO SCH (18:00)
== END 2017-11-03 14:29 | disposition home or self-care (01) | DRG 308 ==
LOC: EMEROOARM 03:36 → 3BNU 03:36
PROVIDERS: ADMIT Family Medicine; ATTEND Family Medicine